=== PATIENT | female | born 1960 | race Caucasian/White ===

== ENCOUNTER 2016-08-31 06:14 | Inpatient (IN) | payer BC ==
[2016-08-20 14:19] VITALS: BMI 24.0
--- NOTE | 2016-08-20 14:55 | PAT Medication Instructions ---
Service Date Aug 20, 2016. Current Home Medication List Aspirin (Aspirin Ec), 81 MG PO QAM Celecoxib (CeleBREX), 200 MG PO BID PRN for Pain Cholecalciferol (Vitamin D), 2,000 UNITS PO QAM Estrog Conj/Medryoxyprog Acet (Prempro 0.3MG/1.5MG), 1 TAB PO HS Fexofenadine Hcl (Ivanna Allergy), 1 TAB PO QAM Fish Oil ([place]-3), 1,200 MG PO BID Levothyroxine Sodium (Synthroid), 50 MCG PO QAM Lorazepam (Ativan), 0.5 MG PO HS Nutritional Supplements (Juice Plus Fibre), 2 DOSE PO BID Sertraline (Zoloft), 50 MG PO QAM Medication Instructions For Your Scheduled Surgery - Hold the following medications as of 08/21/16: Fish Oil ([place]-3), 1,200 MG PO BID - Hold the following medications the morning of surgery: Cholecalciferol (Vitamin D), 2,000 UNITS PO QAM Celecoxib (CeleBREX), 200 MG PO BID PRN for Pain Fexofenadine Hcl (Ivanna Allergy), 1 TAB PO QAM Nutritional Supplements (Juice Plus Fibre), 2 DOSE PO BID - Take the following medications the morning of surgery with a sip of water OTHERWISE NOTHING TO EAT OR DRINK AFTER MIDNIGHT: Aspirin (Aspirin Ec), 81 MG PO QAM Sertraline (Zoloft), 50 MG PO QAM Levothyroxine Sodium (Synthroid), 50 MCG PO QAM - Take the following medications as scheduled the night before surgery: Estrog Conj/Medryoxyprog Acet (Prempro 0.3MG/1.5MG), 1 TAB PO HS Celecoxib (CeleBREX), 200 MG PO BID PRN for Pain Lorazepam (Ativan), 0.5 MG PO HS Nutritional Supplements (Juice Plus Fibre), 2 DOSE PO BID If you have any questions please call us at [phone] or [phone] or [phone]
[2016-08-20 15:27] LABS: URINE APPEARANCE CLEAR (CLEAR); URINE BILIRUBIN NEG (NEG); URINE COLOR YELLOW; URINE NITRITE NEG (NEG); UROBILINOGEN NEG (NEG); ZZUR CULT IF INDIC CLEAN CATCH NO
[2016-08-20 15:30] LABS: MANUAL MICROSCOPIC REQUIRED? NO; REVIEW REQ? NO
[2016-08-20 15:35] LABS: PARTIAL THROMBOPLASTIN RATIO 0.9; PROTHROMBIN TIME (PATIENT) 10.4 SECONDS (9.0-12.0)
--- NOTE | 2016-08-20 15:35 | DIAGNOSTIC IMAGING REPORT ---
CHEST 2 VIEWS ROUTINE CLINICAL HISTORY: Preoperative evaluation. COMPARISON STUDY: No previous studies for comparison. FINDINGS: Lung volumes are normal. Lungs are clear. There is no pneumothorax or pleural effusion. Pulmonary vascularity is normal. Cardiac size is normal. Mediastinal contours are normal. There are cholecystectomy clips. IMPRESSION: No acute cardiopulmonary findings. Electronically signed by: Maciel Butler M.D. 08/20/2016 3:34 PM Dictated Date/Time: 08/20/2016 3:34 PM
[2016-08-20 15:37] LABS: BASO % 0.4 %; BASO ABS # 0.03 K/uL (0-0.2); COMPLETE YES; EOS % 1.9 %; IG% 0.1 %; LYMPH % 29.5 %; LYMPH ABS # 2.05 K/uL (1.2-3.4); MEAN CELL VOLUME 96.9 fL (80-100); MEAN CORPUSCULAR HEMOGLOBIN 32.9 pg (25-34); MEAN CORPUSCULAR HGB CONC 33.9 g/dl (32-36); MEAN PLATELET VOLUME 9.6 fL (7.4-10.4); MONO % 6.5 %; NEUT % 61.6 %; PLATELET COUNT 254 K/uL (130-400); RED BLOOD COUNT 4.23 M/uL (4.2-5.4); WHITE BLOOD COUNT 6.95 K/uL (4.8-10.8)
[2016-08-20 15:47] LABS: BUN/CREATININE RATIO 16.1 (10-20); CALCIUM 8.8 mg/dl (8.5-10.1); CREATININE 0.96 mg/dl (0.60-1.20)
--- NOTE | 2016-08-30 09:18 | HISTORY & PHYSICAL EXAMINATION ---
DATE OF ADMISSION: 08/31/2016 CHIEF COMPLAINT: Left hip pain. HISTORY OF PRESENT ILLNESS: Sofy is a 55-year-old female with a 5-month history of pain in her left hip. She rates her pain a 10/10. She has pain with her daily activities. She has limited standing and walking tolerance. Pain is worse with weightbearing. The patient has had physical therapy and Celebrex without relief. She has failed conservative treatment and is scheduled for left hip replacement. PAST MEDICAL HISTORY: Thyroid disease, anxiety. She denies heart disease, diabetes or DVT. PAST SURGICAL HISTORY: Hernia repair, carpal tunnel bilateral, tubal ligation, ablation and cholecystectomy. SOCIAL HISTORY: The patient drinks wine. She denies tobacco use. She lives in a 2-story home. She is and works as a hospice nurse. FAMILY HISTORY: Negative for DVT. MEDICATIONS: Aspirin 81 mg daily, Ivanna 180 mg daily, Celebrex 200 mg daily, vitamin D 2000 mg, sertraline 50 mg, Ativan 0.5 mg at bedtime, omega-3 600 mg daily, Juice plus, Synthroid 50 mcg and Prempro 0.3 mg. ALLERGIES: TRAMADOL CAUSES HIVES, REGLAN CAUSES ANAPHYLAXIS. REVIEW OF SYSTEMS: See HPI. Ten other systems reviewed, all negative. PHYSICAL EXAMINATION: VITAL SIGNS: Height 5 foot 7, weight 155 pounds, BMI 24. GENERAL: This is a well-developed, well-nourished female who is alert and oriented x3. Mood and affect are appropriate. HEENT: Normocephalic, atraumatic. Mucous membranes are moist and intact. NECK: Supple without lymphadenopathy. HEART: Regular rate and rhythm without murmurs, rubs or gallops. LUNGS: Clear to auscultation without wheezes or rhonchi. ABDOMEN: Soft and nontender. Bowel sounds are equal and active. EXTREMITIES: No ecchymosis, redness or warmth. Thigh and calf are soft and nontender. Log roll of the hip reproduces pain in the groin. Range of motion is decreased. She is neurovascularly intact with +5/5 strength. X-RAY EXAMINATION: AP and lateral views show joint space narrowing and osteophyte formation. IMPRESSION: Degenerative joint disease, left hip. PLAN: The patient will be admitted for a left total hip arthroplasty, direct anterior approach. We will plan on aspirin for DVT prophylaxis.
[2016-08-31] VITALS (9 sets, daily range): BP systolic 96–135; BP diastolic 57–77; PULSE 59–71; TEMP 36.3–36.8; O2SAT 96–100; Ht 170.2 cm; Wt 70.9 kg
[~2016-08-31] VITALS: Ht 170.2 cm; Wt 70.9 kg
[~2016-08-31 06:14] MED LIST: ACETAMINOPHEN 500 MG TAB PO SCH; ASPI81TA28 PO; CEFAZOLIN 2000 MG/60 ML D5W 60 ML IV SCH; CHOL20009 PO; CLB/200 PO; CONJ0.3T3 PO; CeleBREX 200 MG CAP PO SCH; DEXAMETHASONE 4 MG TAB PO SCH; FAMOTIDINE 20 MG TAB PO SCH; FEXO1TAB49 PO; GABAPENTIN 300 MG CAP PO SCH; LACTATED RINGER'S 1000ML 1,000 ML IV SCH; LACTATED RINGER'S 1000ML 500 ML IV SCH; LACTATED RINGER'S 1000ML IV SCH; LEVO50TA PO; LORA-741 PO; METOCLOPRAMIDE HCL 10 MG TAB PO SCH; NUTR-218 PO; OMEG10007 PO; OXYCODONE HCL 10 MG TABCR (OXYCONTIN) PO SCH; POLYMYXIN B SULFATE 100,000 UNITS in NSS 100ML IR SCH; ROPIVACAINE 5MG/ML 30 ML 150 MG, BUPIVACAINE/EPINEPHR 0.5% MPF 30 ML, KETOROLAC TROMETH... INFIL SCH; SERT50TA PO; VANCOMYCIN INJ 400 MG in NSS 100ML IR SCH
[2016-08-31] MEDS ORDERED: BUPIVACAINE 0.5 % 5 MG/1 ML PF 10ML VIAL ONE (07:45)
[2016-08-31] MEDS ORDERED: MIDAZOLAM HCL 1 MG/ML 2ML VIAL ONE (08:03)
--- NOTE | 2016-08-31 08:40 | History & Physical Bridge Note ---
H&P Re-Evaluation Bridge Note: I have examined the patient, reviewed the History & Physical and in the interval since the performance of the History & Physical I have noted the following changes of clinical significance: No changes noted
[2016-08-31] MEDS ORDERED: BACITRACIN 50000 UNIT VIAL ONE (09:11)
[2016-08-31] MEDS ORDERED: ORTHO JOINT ANESTHETIC ONE (09:11)
[2016-08-31] MEDS ORDERED: POVIDONE-IODINE OP SOLN 30 ML BTL ONE (09:11)
[2016-08-31] MEDS ORDERED: PROPOFOL IV EMULSION 10 MG/ML 20 ML VIAL IV ONE (10:22)
[2016-08-31] MEDS ORDERED: EpHEDrine SULFATE INJ 50 MG/ML AMP ONE (10:22)
--- NOTE | 2016-08-31 10:55 | [facility] Post Operative Brief Note ---
Immediate Operative Summary Operative Date Aug 31, 2016. Pre-Operative Diagnosis Degenerative joint disease, left hip Post-Operative Diagnosis Degenerative joint disease, left hip Procedure(s) Performed Left total hip arthroplasty, anterior approach Surgeon Dr Dick Mistry Damage Assessor Surgeon(s) Robyn Rao PA-C Estimated Blood Loss 100 mL Findings djd synovium angry Specimens A: Left femoral head Complication(s) None Disposition Recovery Room / PACU
[2016-08-31] MEDS ORDERED: SOD PHOSPHATE/SOD BIPHOSPHATE ENEMA 132 ML BTL PR PRN (11:00)
[2016-08-31] MEDS ORDERED: MoRPHine SULFATE 2 MG/ML CARP IV PRN (11:00)
[2016-08-31] MEDS ORDERED: DiphenhydrAMINE HCL 50 MG/ML VIAL IV PRN (11:00)
[2016-08-31] MEDS ORDERED: ALUMINUM/MAGNESIUM/SIMETH (MAALOX MAX) 30 ML UDC PO PRN (11:00)
[2016-08-31] MEDS ORDERED: FENTANYL CITRATE INJ 50 MCG/1 ML 2 ML VIAL IV PRN (11:00)
[2016-08-31] MEDS ORDERED: ZOLPIDEM TARTRATE 5 MG TAB PO PRN (11:00)
[2016-08-31] MEDS ORDERED: MAGNESIUM HYDROXIDE SUSP 30 ML UDC PO PRN (11:00)
[2016-08-31] MEDS ORDERED: ONDANSETRON INJ 2 MG/ML 2 ML VIAL IV PRN ×2 (11:00)
[2016-08-31] MEDS ORDERED: HYDROmorphone INJ 1 MG/ML SYR IV PRN (11:00)
[2016-08-31] MEDS ORDERED: EpHEDrine SULFATE INJ 50 MG/ML AMP IV PRN (11:00)
[2016-08-31] MEDS ORDERED: MEPERIDINE HCL 25 MG/ML CARP IV PRN (11:00)
[2016-08-31] MEDS ORDERED: BISACODYL 10 MG SUPP PR PRN (11:00)
[2016-08-31] MEDS ORDERED: LABETALOL HCL IV 5 MG/ML 20ML IV PRN (11:00)
[2016-08-31] MEDS ORDERED: ATROPINE SULFATE 0.1 MG/ML 5ML SYR IV PRN (11:00)
--- NOTE | 2016-08-31 11:05 | DIAGNOSTIC IMAGING REPORT ---
INTRAOPERATIVE RADIOGRAPH CLINICAL HISTORY: Left hip arthroplasty. Fluoroscopy time: 15 seconds. FINDINGS: A single spot fluoroscopic view of the left hip is presented. A bipolar left hip are plasty is in near-anatomic alignment. A single cortical lag screw transfixes the acetabular cup. Soft tissue edema and subcutaneous gas are likely on a postoperative basis. There is no evidence of fracture on this fluoroscopic view. IMPRESSION: Intraoperative image from a left hip arthroplasty procedure as above. Electronically signed by: Ford Issa M.D. 08/31/2016 11:03 AM Dictated Date/Time: 08/31/2016 11:02 AM
--- NOTE | 2016-08-31 12:04 | DIAGNOSTIC IMAGING REPORT ---
AP PELVIS, CROSSTABLE LATERAL LEFT HIP History: Left total hip arthroplasty. Degenerative arthritis. Postop. FINDINGS: The patient is status post a left total hip arthroplasty. The hardware is intact. No fracture or dislocation. Surgical drains are in place. IMPRESSION: Left total hip arthroplasty. No evidence for hardware complication. Electronically signed by: Cesar Merritt M.D. 08/31/2016 12:02 PM Dictated Date/Time: 08/31/2016 12:01 PM
[2016-08-31] MEDS: TRANEXAMIC ACID INJ 1,000 MG in SODIUM CHLORIDE 0.9% 100ML 100 ML IV SCH ×2 (13:01→13:02)
[2016-08-31] MEDS: D5W AND 1/2NSS + 20MEQ KCL 1,000 ML IV SCH ×2 (13:23→22:35)
[2016-08-31] MEDS: ACETAMINOPHEN 500 MG TAB PO SCH ×2 (14:10→22:35)
[2016-08-31] MEDS: KETOROLAC TROMETHAMINE 30 MG/ML VIAL IV. SCH ×2 (14:11→20:07)
[2016-08-31] MEDS: CONJUGATED ESTROGENS PO SCH ×2 (15:29→23:00)
[2016-08-31] MEDS: MEDROXYPROGESTERONE PO SCH ×2 (15:29→23:00)
--- NOTE | 2016-08-31 16:20 | OPERATIVE REPORT ---
DATE OF OPERATION: 08/31/2016 PREOPERATIVE DIAGNOSIS: Degenerative arthritis, left hip. POSTOPERATIVE DIAGNOSIS: Same. PROCEDURE: Left total hip replacement. SURGEON: Dr. Dick Mistry. CONVALESCENT SITTER: EVELIN Terry ANESTHESIA: Spinal. BLOOD LOSS: 100 mL. REPLACEMENT FLUIDS: 1500 mL crystalloid. DRAINS: Hemovac x1. CULTURES: None. COMPLICATIONS: None. COMPONENTS USED: Whaley \T\ Nephew Anthology hip system: Acetabulum size 50, femur size 3 standard offset, femoral head 0, and neck length 32 mm. NOTE: EVELIN Terry was present and assisted throughout due to the complicated nature of this case. She helped with preparation and set up. She first assisted throughout. She personally closed the fascial, subcutaneous and skin layers and applied the postoperative dressing. DESCRIPTION OF PROCEDURE: Following satisfactory spinal, the patient was supine. The left leg was placed in the traction device and the right leg was placed in the well leg deng. The left leg was prepared with ChloraPrep and draped sterilely. Following a surgical time-out, an anterior approach in the interval between the sartorius and tensor muscles was completed. Circumflex femoral vessels were identified and ligated. An anterior capsulotomy was performed and the hip showed very angry synovial lining and significant degenerative changes. The femoral neck and head were trimmed and the arthritic femoral head was removed. The acetabular self-retraining retractor was placed. Acetabular preparation was completed and reaming was completed with fluoroscopic guidance. A 50 shell was impacted into an anatomic position and secured with a dome screw. Local anesthetic was placed and after irrigation, the polyethylene liner was placed. Attention was turned to the femur. The femur was placed into position of external rotation, extension and adduction. Femoral canal was prepared up to the size 3. A trial reduction with a 0 neck length head using fluoroscopy showed good fit and fill of the canal and worship of leg lengths using anatomic landmarks on fluoroscopy. The hip was dislocated. Trial component was removed. Local anesthetic was placed and after irrigation, the final implant was placed. The hip was irrigated and reduced. Fluoroscopy confirmed the position. A Betadine soak was performed. Local anesthetic was placed. After 5 minutes, the Betadine was irrigated. The capsule was closed with 1 Vicryl interrupted. A drain was placed. The fascia was closed with a running suture of 1 Vicryl. The subcutaneous tissues with 2-0 Vicryl and the skin with a running subcuticular stitch of 3-0 V-Loc. Dermabond and a dry dressing were applied. The patient was returned to her bed in stable condition. I attest to the content of the Intraoperative Record and any orders documented therein. Any exceptio ns are noted below.
--- NOTE | 2016-08-31 16:25 | Anesthesiology Progress Note ---
Anesthesia Post Op Note Date & Time Aug 31, 2016 at 16:24 Vital Signs Pain Intensity: 0.0 Vital Signs Past 12 Hours Date Time Temp Pulse Resp B/P Pulse Ox O2 Delivery O2 Flow Rate FiO2 08/31/16 14:58 36.4 61 16 104/63 99 Nasal Cannula 2.0 08/31/16 14:03 36.5 69 19 103/66 100 Nasal Cannula 2.0 08/31/16 13:05 59 17 100/63 100 Nasal Cannula 2.0 08/31/16 12:30 36.3 64 19 107/57 100 Nasal Cannula 2.0 08/31/16 12:00 36.5 71 16 112/70 99 Nasal Cannula 2.0 08/31/16 12:00 99 Nasal Cannula 2.0 08/31/16 12:00 Nasal Cannula 2.0 08/31/16 11:45 36.9 16 108/60 100 Nasal Cannula 2 08/31/16 11:38 36.9 08/31/16 11:30 67 16 122/62 100 Nasal Cannula 2 08/31/16 11:20 79 16 108/69 100 Nasal Cannula 4 08/31/16 11:10 80 14 118/63 100 Nasal Cannula 4 08/31/16 11:07 36.7 80 116/67 100 Nasal Cannula 4 08/31/16 07:10 36.8 62 16 135/77 97 Room Air Notes Mental Status: alert / awake / arousable, participated in evaluation Pt Amnestic to Procedure: Yes Nausea / Vomiting: adequately controlled Pain: adequately controlled Airway Patency, RR, SpO2: stable & adequate BP & HR: stable & adequate Hydration State: stable & adequate Neuraxial Anesthesia: was administered, sensory block is resolving Anesthetic Complications: no major complications apparent
[2016-08-31] MEDS: CEFAZOLIN IV 2,000 MG in DEXTROSE 5% 50ML 50 ML IV SCH (18:07)
[2016-08-31] MEDS: OXYCODONE HCL IR 5 MG TAB (IMMEDIATE RELEASE) PO PRN (18:07)
[2016-08-31] MEDS ORDERED: SENNA 8.6 MG TAB PO SCH (21:00)
[2016-08-31] MEDS ORDERED: LORAZEPAM 0.5 MG TAB PO SCH (21:00)
[2016-08-31] MEDS: ASPIRIN 81 MG ECTAB PO SCH (21:16)
[2016-09-01] MEDS: KETOROLAC TROMETHAMINE 30 MG/ML VIAL IV. SCH ×2 (02:20→08:22)
[2016-09-01] MEDS: CEFAZOLIN IV 2,000 MG in DEXTROSE 5% 50ML 50 ML IV SCH (02:20)
[2016-09-01] MEDS: OXYCODONE HCL IR 5 MG TAB (IMMEDIATE RELEASE) PO PRN ×2 (02:21→11:27)
[2016-09-01 03:55] VITALS: BP 93/54; PULSE 65; TEMP 36.8; O2SAT 94
[2016-09-01] MEDS: ACETAMINOPHEN 500 MG TAB PO SCH (05:50)
[2016-09-01] MEDS ORDERED: LEVOTHYROXINE 50 MCG TAB PO SCH (06:00)
[2016-09-01 06:31] LABS: BASO % 0.1 %; BASO ABS # 0.01 K/uL (0-0.2); COMPLETE YES; EOS % 0.1 %; HEMATOCRIT 31.2 % (37-47); IG% 0.2 %; LYMPH % 10.6 %; LYMPH ABS # 1.31 K/uL (1.2-3.4); MEAN CORPUSCULAR HEMOGLOBIN 32.9 pg (25-34); MEAN CORPUSCULAR HGB CONC 34.3 g/dl (32-36); MEAN PLATELET VOLUME 9.4 fL (7.4-10.4); MONO % 6.9 %; NEUT % 82.1 %; PLATELET COUNT 189 K/uL (130-400); RED BLOOD COUNT 3.25 M/uL (4.2-5.4)
[2016-09-01 07:01] LABS: BUN/CREATININE RATIO 11.8 (10-20); CALCIUM 7.9 mg/dl (8.5-10.1); CREATININE 0.97 mg/dl (0.60-1.20); POTASSIUM 3.9 mmol/L (3.5-5.1)
[2016-09-01 07:26] VITALS: BP 108/67; PULSE 74; TEMP 36.7; O2SAT 98
[2016-09-01] MEDS: MEDROXYPROGESTERONE PO SCH (08:00)
[2016-09-01] MEDS: CONJUGATED ESTROGENS PO SCH (08:00)
--- NOTE | 2016-09-01 08:18 | Orthopedic Progress Note ---
Orthopedic Progress Note Date of Service Sep 01, 2016. Subjective Post OP Day: 1 Reports: feeling well, pain controlled w PO medications, Denies: calf pain, complaints, light headedness, nausea / vomiting Objective calves soft nontender, N/V intact, hip located, dressing C/D/I, A&O x3, toes mobile, hemovac drainage (110 LAST SHIFT ) Date Time Temp Pulse Resp B/P Pulse Ox O2 Delivery O2 Flow Rate FiO2 09/01/16 07:26 36.7 74 18 108/67 98 Room Air 09/01/16 03:55 36.8 65 16 93/54 94 Room Air 08/31/16 23:15 Room Air 08/31/16 23:03 36.6 63 16 96/57 96 Room Air 08/31/16 22:22 Room Air 08/31/16 19:33 36.5 64 17 101/64 96 Room Air 08/31/16 15:30 97 Room Air 08/31/16 14:58 36.4 61 16 104/63 99 Nasal Cannula 2.0 08/31/16 14:03 36.5 69 19 103/66 100 Nasal Cannula 2.0 08/31/16 13:05 59 17 100/63 100 Nasal Cannula 2.0 08/31/16 12:30 36.3 64 19 107/57 100 Nasal Cannula 2.0 08/31/16 12:00 36.5 71 16 112/70 99 Nasal Cannula 2.0 08/31/16 12:00 99 Nasal Cannula 2.0 08/31/16 12:00 Nasal Cannula 2.0 08/31/16 11:45 36.9 16 108/60 100 Nasal Cannula 2 08/31/16 11:38 36.9 08/31/16 11:30 67 16 122/62 100 Nasal Cannula 2 08/31/16 11:20 79 16 108/69 100 Nasal Cannula 4 08/31/16 11:10 80 14 118/63 100 Nasal Cannula 4 08/31/16 11:07 36.7 80 116/67 100 Nasal Cannula 4 Laboratory Results 24 Hours: Test 09/01/16 06:13 White Blood Count 12.40 K/uL Red Blood Count 3.25 M/uL Hemoglobin 10.7 g/dL Hematocrit 31.2 % Mean Corpuscular Volume 96.0 fL Mean Corpuscular Hemoglobin 32.9 pg Mean Corpuscular Hemoglobin Concent 34.3 g/dl Platelet Count 189 K/uL Mean Platelet Volume 9.4 fL Neutrophils (%) (Auto) 82.1 % Lymphocytes (%) (Auto) 10.6 % Monocytes (%) (Auto) 6.9 % Eosinophils (%) (Auto) 0.1 % Basophils (%) (Auto) 0.1 % Neutrophils # (Auto) 10.19 K/uL Lymphocytes # (Auto) 1.31 K/uL Monocytes # (Auto) 0.86 K/uL Eosinophils # (Auto) 0.01 K/uL Basophils # (Auto) 0.01 K/uL Assessment & Plan Assessment: POD 1 DEIDRA Plan: HOME TODAY NO NEEDS Inhouse Planning Pain Management: Celebrex, PO Tylenol, Oxy IR DVT Prophylaxis: TEDs, SCDs, ASA Discharge Planning Discharge Planning: home Pain Management: Celebrex, PO Tylenol, Oxy IR DVT Prophylaxis: TEDs, ASA Therapy: Physical Therapy
[2016-09-01] MEDS ORDERED: RXC5 PO (08:34)
[2016-09-01] MEDS ORDERED: CLB/200 PO (08:34)
[2016-09-01] MEDS ORDERED: ASPI81TA28 PO (08:34)
[2016-09-01] MEDS ORDERED: ONDA8TAB6 PO (08:34)
[2016-09-01] MEDS ORDERED: ACET-1138 PO (08:34)
[2016-09-01] MEDS ORDERED: SNK PO (08:34)
--- NOTE | 2016-09-01 08:41 | Discharge Instructions ---
Discharge Instructions Admission Reason for Admission: Left Hip Degenerative Arthritis Discharge Discharge Diagnosis / Problem: Left Hip Djd Discharge Goals Goal(s): Decrease discomfort, Improve function Activity Recommendations Activity Limitations: per Instructions/Follow-up section Weightbearing Status: Left weightbearing (as tolerated) . Instructions / Follow-Up Instructions / Follow-Up ACTIVITY RECOMMENDATIONS: SELF CARE INSTRUCTIONS AFTER TOTAL HIP REPLACEMENT : Direct Anterior Approach Until the incision and soft tissues around your hip have healed, there is a possibility that the hip prosthesis could dislocate. A. Hip flexion ( Up & Down out of chair or steps ) may be difficult. This is normal. B. Numbness in front of the thigh is also normal for a few weeks. C. Use hand rails when walking on stairs. D. Wear low heeled shoes with non-slip soles. E. Be sure that your floors are free of things that could trip you - throw rugs , electrical cords, small objects. Avoid wet and waxed floors, especially with crutches and canes. F. Try to walk several times a day with rest periods between. G. Continue with all the exercises taught to you in the hospital. Again, make walking a part of your daily routine. SPECIAL CARE INSTRUCTIONS: VERY IMPORTANT TO READ AND REVIEW A. You may still be at risk for phlebitis and blood clots. 1. Wear surgical stockings (NILSON hose) for 2 weeks after surgery to improve circulation and reduce swelling. 2. Take Aspirin 81mg twice daily for 4 weeks or as directed by your doctor. This is your blood thinner. 3. High risk patients may be prescribed a stronger blood thinner if necessary. 4. If you are on Coumadin normally, your family doctor/human services program specialist should monitor your blood work. Expect a phone call the day of or the day after bloodwork is drawn to adjust your dosage. B. You must take antibiotics before having dental work, bladder, bowel and other surgery. Your doctor will provide you with a permanent card to carry describing precautions. C. Call [facility] if you have a fever, redness or swelling around the incision, cloudy drainage from incision, or sudden increase in pain in your hip, not relieved by your regular pain medication. D. Please call the office at if you have any concerns or questions about your operation or recovery. * YOU MAY SHOWER, NO TUB BATHS UNTIL CLEARED BY YOUR DOCTOR. - Keep an extra close eye on the top portion of your incision. Be sure to keep clean & dry. * WEAR NILSON HOSE 20 HOURS PER DAY FOR 2 WEEKS. * YOU MAY PROGRESS FROM A WALKER, TO A CANE, TO INDEPENDENT AT YOUR OWN PACE. * MOST PATIENTS WILL HAVE HOME NURSING FOR THERAPY. IF YOU DECIDE TO DO OUTPATIENT PHYSICAL THERAPY, PLEASE SCHEDULE THIS 3 TIMES PER WEEK. * DERMABOND Prineo- This is a mesh tape dressing that is covered with glue. It should remain in place until the incision is properly healed, usually 10-14 days. This dressing is designed to naturally slough off. You may trim the excess mesh tape as it peels off. Incision may be briefly wet in a shower. Dry immediately by blotting with a clean, dry towel. Do not bath or swim until instructed by your doctor. Do not scratch, rub, or pick at the dressing. Do not apply any topical ointments or lotions until dressing is completely removed and/or instructed by your doctor. There may be a small piece of suture material at one end of your incision. Do not pull or trim this. If it is bothersome or catching on clothing, you may cover it with a band-aid. FOLLOW UP VISIT: If appointment is not already scheduled: Please call [facility] to make a follow-up appointment for 2 weeks after your surgery at . Current Hospital Diet Patient's current hospital diet: Regular Diet Discharge Diet Recommended Diet: Regular Diet Procedures Procedures Performed: Left total hip arthroplasty, anterior approach Pending Studies Studies pending at discharge: no Medical Emergencies . Who to Call and When: Medical Emergencies: If at any time you feel your situation is an emergency, please call 911 immediately. . Non-Emergent Contact Non-Emergency issues call your: Surgeon Call Non-Emergent contact if: temperature is above 101.5, your pain is not controlled, your pain is worsening, wound has increased drainage, wound has increased redness . "Provider Documentation" section prepared by Isaías Wei. VTE Core Measure Inpt VTE Proph given/why not?: Other Anticoagulation, T.E.D. Stockings, SCD's [place] Drug Monitoring Program Search Results: patient reviewed within database, no issues identified
[2016-09-01] MEDS: D5W AND 1/2NSS + 20MEQ KCL 1,000 ML IV SCH (08:58)
[2016-09-01] MEDS ORDERED: PANTOprazole SOD 40 MG TAB PO SCH (09:00)
[2016-09-01] MEDS ORDERED: SERTRALINE HCL 50 MG TAB PO SCH (09:00)
[2016-09-01] MEDS ORDERED: MULTIVITAMIN TAB PO SCH (09:00)
[2016-09-01] MEDS ORDERED: CHOLECALCIFEROL 1000 INTER.UNIT TAB PO SCH (09:00)
[2016-09-01] MEDS: ASPIRIN 81 MG ECTAB PO SCH (09:00)
[2016-09-01 11:15] VITALS: BP 108/67; PULSE 74; TEMP 36.7; O2SAT 98
[2016-09-02] MEDS ORDERED: CeleBREX 200 MG CAP PO SCH (21:00)
--- NOTE | 2016-09-03 14:32 | DISCHARGE SUMMARY ---
DISCHARGE DIAGNOSIS: Degenerative joint disease, left hip. SECONDARY DIAGNOSIS: None. CONSULTS: None. COMPLICATIONS: None. PROCEDURE: The patient underwent a direct anterior left total hip arthroplasty with Dr. Mistry on 08/31/2016. BRIEF HISTORY: Please see previously dictated history and physical. HOSPITAL SUMMARY: The patient was admitted on the above day for the above procedure. Procedure went without complication. Postop day 1, the patient was feeling well without complaints. She denied chest pain or shortness of breath. Vital signs were stable. She was afebrile. Dressing was clean, dry and intact. She was neurovascularly intact. Calves were soft and nontender. Hip was located. Hemovac drained 110 mL. Hemoglobin was 10.7. The patient began physical therapy per protocol. She was discharged to home later that day in stable condition. For further review please see the chart. Lab, x-ray data and discharge instructions as per chart.
== END 2016-09-01 11:35 | disposition home or self-care (01) | DRG 470 ==
LOC: ENRESERVTM → ENRESERVDT → C.ACU 06:14 → C.3E 10:59
PROVIDERS: ADMIT Orthopaedic Surgery; ATTEND Orthopaedic Surgery
PROC: 0SRB01Z Replacement of Left Hip Joint with Metal Synthetic Substitute, Open Approach (ICD-10-PCS; principal; 2016-08-31 08:55)
DX: M16.12 Unilateral primary osteoarthritis, left hip (principal)

== ENCOUNTER 2025-06-24 05:55 | Inpatient (IN) ==
--- NOTE | 2025-06-01 11:48 | PAT Medication Instructions ---
Medication Instructions Date of Service June 01, 2025 Home Medications Calcium 200 mg PO QAM escitalopram oxalate 10 mg tablet (Lexapro) 10 mg PO QAM fexofenadine 180 mg tablet 180 mg PO QAM levothyroxine 50 mcg tablet (Synthroid) 50 mcg PO QAM lorazepam 0.5 mg tablet (Ativan) 0.5 mg PO HS magnesium 200 mg tablet 200 mg PO HS meloxicam 15 mg tablet 15 mg PO QAM omeprazole 20 mg capsule,delayed release 20 mg PO QAM vitamin A-vitamin C-vit E-min tablet 1 tab PO QAM ASK your surgeon for instructions meloxicam 15 mg tablet 15 mg PO QAM STOP taking 2 weeks before surgery (or as soon as possible if surgery is within 2 weeks) vitamin A-vitamin C-vit E-min tablet 1 tab PO QAM DO NOT take the morning of surgery Calcium 200 mg PO QAM fexofenadine 180 mg tablet 180 mg PO QAM Take morning of surgery With a small sip of water, OTHERWISE NOTHING TO EAT OR DRINK AFTER MIDNIGHT: escitalopram oxalate 10 mg tablet (Lexapro) 10 mg PO QAM levothyroxine 50 mcg tablet (Synthroid) 50 mcg PO QAM omeprazole 20 mg capsule,delayed release 20 mg PO QAM Take evening before surgery lorazepam 0.5 mg tablet (Ativan) 0.5 mg PO HS magnesium 200 mg tablet 200 mg PO HS Other Notes If you have any questions please call us at [phone] or [phone] or [phone] or [phone]
--- NOTE | 2025-06-08 11:55 | Anesthesiology Consultation ---
Date of Service June 08, 2025 Assessment & Plan (1) Encounter for pre-operative examination: - Infectious disease screening: Per assessment on 06/08/25- No known recent infectious disease contacts or current infectious disease symptoms. - Acceptable risk for surgery pending surgeon-ordered PCP preop evaluation (Dr. Livia Brenner/[facility] Luciano, appt 06/14). Chart Review Chart Review: Patient seen in Pre Admission Testing Teaching & Discussion Pre-Anesthesia Teaching/Discussion Notes: Instructed NPO after midnight before surgery,except medications with 15 cc of water. Medication instructions provided according to the PAT guidelines. History Surgery Operation Date: 06/24/25 11:05 Proposed Procedures p L5-S1 Decompession and Fusion - Manolo Corey, Height/Weight Height: 5 ft 6 in Weight: 60.1 kg Allergies Allergy/AdvReac Type Severity Reaction Status Date / Time metoclopramide Allergy Severe Shortness Verified 06/04/25 12:37 of breath latex Allergy Intermediate Rash Verified 06/04/25 12:37 tramadol Allergy Intermediate Hives, Verified 06/08/25 12:20 Shortness of breath Medications Home Medications Medication Instructions Recorded Confirmed Last Taken Calcium 200 mg PO QAM 06/01/25 06/01/25 Unknown escitalopram oxalate 10 mg tablet 10 mg PO QAM 06/01/25 06/01/25 Unknown (Lexapro) fexofenadine 180 mg tablet 180 mg PO QAM 06/01/25 06/01/25 Unknown levothyroxine 50 mcg tablet 50 mcg PO QAM 06/01/25 06/01/25 Unknown (Synthroid) lorazepam 0.5 mg tablet (Ativan) 0.5 mg PO HS 06/01/25 06/01/25 Unknown magnesium 200 mg tablet 200 mg PO HS 06/01/25 06/01/25 Unknown meloxicam 15 mg tablet 15 mg PO QAM 06/01/25 06/01/25 Unknown omeprazole 20 mg capsule,delayed 20 mg PO QAM 06/01/25 06/01/25 Unknown release vitamin A-vitamin C-vit E-min 1 tab PO QAM 06/01/25 06/01/25 Unknown tablet Hair,Skin and Nails 1 tab PO DAILY 06/08/25 06/08/25 Unknown cholecalciferol (vitamin D3) 125 125 mcg PO DAILY 06/08/25 06/08/25 Unknown mcg (5,000 unit) tablet (Vitamin D3) Past Medical History Medical History Acid reflux Anxiety Chronic back pain Hypothyroidism Exercise / Class Metabolic Activity III < 4 Walking/Shop/Light housework (one FS: No CP, + SOB in setting of worsening back issues) Past Family History Family History Other No family history of adverse response to anesthesia Past Surgical History Surgical History History of bilateral carpal tunnel release History of bilateral tubal ligation x2 (first one "didn't work" per patient) History of cholecystectomy History of dilatation and curettage History of endometrial ablation History of hernia surgery Age 3 History of tonsillectomy and adenoidectomy History of tooth extraction History of total hysterectomy with bilateral salpingo-oophorectomy (BSO) History of total left hip replacement History of total right hip replacement History of wisdom tooth extraction Hx of LASIK Past Anesthesia History No Hx of Anesthesia Complications and No Family Hx of Anesthesia Complications History of PONV No Hx of PONV and No Hx of Motion Sickness Social History Smoking Status: Never smoker Do You Dip or Chew Tobacco: No Hx Alcohol Use: No Hx Substance Use: No substance use type: does not use Review of Systems Patient denies chest pain, fever, chills, cough, wheezing. Physical Exam Vital Signs BP 128/79 P 62 TEMP 98.1 SP02 96%RA RESP 16 Physical Full cervical extension range of motion. Full TMJ range of motion. TMD 3 finger breaths Mallampati Score II Dentition: missing molar, + cap Lungs: clear throughout to auscultation Cardiac: regular rate and rhythm, no murmurs noted Spine: normal Carotid arteries: negative bruit Extremities: no LE edema Lab Results Anesthesia Preop Results Results Anesthesia Widget: WBC 4.99 K/ul (4.8-10.8) 06/08/25 Hgb 12.7 g/dL (12.0-16.0) 06/08/25 Hct 37.3 % (37.0-47.0) 06/08/25 Plt 235 K/uL (130-400) 06/08/25 Na 133 mmol/L (136-145) L 06/08/25 K 4.3 mmol/L (3.5-5.1) 06/08/25 Cl 98 mmol/L (98-107) 06/08/25 CO2 31 mmol/L (21-32) 06/08/25 BUN 23 mg/dl (6-23) 06/08/25 Creat 0.94 mg/dl (0.6-1.2) 06/08/25 Glucose Level 84 mg/dl (70-99(Fasting)) 06/08/25 PT 10.9 Seconds (9.0-12.0) 06/08/25 PTT 25 Seconds (21-31) 06/08/25 INR 1.0 (0.9-1.1) 06/08/25 Urine Color Yellow 06/08/25 Urine Appearance Clear (Clear) 06/08/25 Urine pH 7.0 (4.5-7.5) 06/08/25 Urine Specific [place] 1.009 (1.000-1.030) 06/08/25 Urine Protein Negative (Negative) 06/08/25 Urine Glucose (UA) Negative (Negative) 06/08/25 Urine Ketones Negative (Negative) 06/08/25 Urine Blood Negative (Negative) 06/08/25 Urine Nitrite Negative (Negative) 06/08/25 Urine Bilirubin Negative (Negative) 06/08/25 Urine Urobilinogen Negative (Negative) 06/08/25 Urine Leukocyte Esterase Negative (Negative) 06/08/25 Blood Type O Positive 06/08/25 Antibody Screen NEGATIVE 06/08/25 Testing Electrocardiogram Date: 06/08/25 NSR at 60bpm. "Normal ECG" Chest X-Ray Date: 06/08/25 FINDINGS: Heart size and pulmonary vasculature are normal. No consolidation or pleural effusion. IMPRESSION: No acute findings.
[2025-06-24] MEDS: LR 60ML/HR IV SCH (06:36)
[2025-06-24] MEDS: LR 15ML/HR IV SCH (06:36)
[2025-06-24] MEDS: ACETAMINOPHEN 500 MG TAB PO SCH (06:40)
[2025-06-24] MEDS: CeleBREX 200 MG CAP PO SCH (06:41)
[2025-06-24] MEDS: GABAPENTIN 300 MG CAP PO SCH (06:41)
[2025-06-24] MEDS ORDERED: ONDANSETRON INJ 2 MG/ML 2 ML VIAL ONE (07:01)
[2025-06-24] MEDS ORDERED: LIDOCAINE 2% 2 ML VIAL/AMP(20MG/ML) INFIL ONE (07:01)
[2025-06-24] MEDS ORDERED: DEXAMETHASONE SOD INJ 4 MG/ML VIAL ONE (07:01)
[2025-06-24] MEDS ORDERED: PROPOFOL IV EMULSION 10 MG/ML 20 ML VIAL IV ONE (07:01)
[2025-06-24] MEDS ORDERED: LARYING-O-JET KIT (LTA) ONE (07:02)
[2025-06-24] MEDS ORDERED: MIDAZOLAM HCL 1 MG/ML 2ML VIAL ONE (07:02)
[2025-06-24] MEDS ORDERED: ROCURONIUM BROMIDE 10 MG/ML 5 ML VIAL IV ONE (07:02)
[2025-06-24] MEDS ORDERED: DexMEDEtomidine HCL IV 100 MCG/ML VIAL IV ONE (07:08)
--- NOTE | 2025-06-24 07:42 | History & Physical Bridge Note ---
Date of Service June 24, 2025 History & Physical Bridge Note I have examined the patient, reviewed the History & Physical and in the interval since the performance of the History & Physical I have noted the following changes of clinical significance: no changes noted
[2025-06-24] MEDS ORDERED: ONDANSETRON INJ 2 MG/ML 2 ML VIAL IV PRN ×2 (07:43→11:03)
[2025-06-24] MEDS ORDERED: ATROPINE SULFATE 0.1 MG/ML 10ML SYR IV PRN (07:43)
--- NOTE | 2025-06-24 07:43 | History & Physical Report ---
Date of Service June 24, 2025 Assessment & Plan (1) Lumbosacral spondylosis with radiculopathy: Plan: L5-S1 decompression and fusion History of Present Illness Chief Complaint: Back and leg pain Primary Care Provider: Livia Brenner This is a 64-year-old female who presents with chronic persistent back and leg pain and failing course of nonoperative care is here for surgical invention. Allergies Allergy/AdvReac Type Severity Reaction Status Date / Time metoclopramide Allergy Severe Shortness Verified 06/24/25 05:56 of breath latex Allergy Intermediate Rash Verified 06/24/25 05:56 tramadol Allergy Intermediate Hives, Verified 06/24/25 05:56 Shortness of breath Home Medications Medication Instructions Recorded Confirmed Type Calcium 200 mg PO QAM 06/01/25 06/24/25 History escitalopram oxalate 10 mg tablet 10 mg PO QAM 06/01/25 06/24/25 History (Lexapro) fexofenadine 180 mg tablet 180 mg PO QAM 06/01/25 06/24/25 History levothyroxine 50 mcg tablet 50 mcg PO QAM 06/01/25 06/24/25 History (Synthroid) lorazepam 0.5 mg tablet (Ativan) 0.5 mg PO HS 06/01/25 06/24/25 History magnesium 200 mg tablet 200 mg PO HS 06/01/25 06/24/25 History meloxicam 15 mg tablet 15 mg PO QAM 06/01/25 06/24/25 History omeprazole 20 mg capsule,delayed 20 mg PO QAM 06/01/25 06/24/25 History release Hair,Skin and Nails 1 tab PO DAILY 06/08/25 06/24/25 History cholecalciferol (vitamin D3) 125 125 mcg PO DAILY 06/08/25 06/24/25 History mcg (5,000 unit) tablet (Vitamin D3) acetaminophen 325 mg capsule 650 mg PO TID PRN Pain 06/24/25 06/24/25 History Past Med/Surg History Problem List (Updated 06/24/25 @ 07:42 by Manolo Corey DO) Lumbosacral spondylosis with radiculopathy Encounter for pre-operative examination Medical History Acid reflux Anxiety Chronic back pain Hypothyroidism Surgical History History of bilateral carpal tunnel release History of bilateral tubal ligation x2 (first one "didn't work" per patient) History of cholecystectomy History of dilatation and curettage History of endometrial ablation History of hernia surgery Age 3 History of tonsillectomy and adenoidectomy History of tooth extraction History of total hysterectomy with bilateral salpingo-oophorectomy (BSO) History of total left hip replacement History of total right hip replacement History of wisdom tooth extraction Hx of LASIK Family History Other No family history of adverse response to anesthesia Social History Smoking Status: Never smoker Second Hand Exposure: No; Do You Dip or Chew Tobacco: No; Tobacco Cessation Education Requested by Patient: No Hx Alcohol Use: No Hx Substance Use: No Preferred Language: [place] Communication Ability: Effective Biblical Studies Professor Required: No Beliefs That Will Affect Care: None Current Living Situation: Spouse Other Information That Helps Us Care for You: No Feels Safe at Home: Yes Safety Concerns: Feels Safe At This Time Assistive Devices: None Physical Exam Physical Exam: Patient is alert and oriented heart regular rhythm lungs clear Results & Data Results & Data Vital Signs (Past 12 Hours) Vital Signs Temp Pulse Resp BP Pulse Ox O2 Del Method 06/24/25 06:09 Room Air 06/24/25 06:08 36.5 C 74 18 130/76 97 Room Air
[2025-06-24] MEDS ORDERED: ePHEDrine sulfate 50 MG/5 ML SYR ONE (08:11)
[2025-06-24] MEDS ORDERED: PHENYLEPHRINE 100MCG/ML 5ML SYR ONE (08:11)
[2025-06-24] MEDS: BUPIVACAINE/EPINEPHRINE 0.25% 1:200,000 30 ML VIAL ONE (08:14)
[2025-06-24] MEDS ORDERED: SUGAMMADEX SODIUM 200 MG/2 ML VIAL IV ONE (08:16)
[2025-06-24] MEDS ORDERED: PHENYLEPHRINE HCL 10 MG/ML VIAL ONE (08:31)
[2025-06-24] MEDS: FLOSEAL HEMOSTATIC MATRIX 10ML TOP ONE (09:20)
[2025-06-24] MEDS: ceFAZolin 330 MG/ML 1 GM VIAL ONE (09:20)
--- NOTE | 2025-06-24 09:28 | Operative Report ---
Post Operative Report Pre & Post Diagnosis Operation Date: 06/24/25 07:45 Pre-Op Diagnosis: Spinal Stenosis of Lumbar Region with Radiculopathy Post-Op Diagnosis: Spinal Stenosis of Lumbar Region with Radiculopathy I identified the patient and participated in the time-out.: Yes Procedure Operation Date: 06/24/25 07:45 Actual Procedures #1 lumbar decompression bilaterally facetectomies and foraminotomies L5-S1. 2 posterior spinal fusion L5-S1. #3 placement of posterior instrumentation L5-S1. #4 interbody fusion L5-S1. #5 placement of Spira 10 x 26 mm at L5-S1. #6 placement of Koros combined with Proteus bone graft to posterior lateral gutters and os design interbody space. #7 application of versa wrap of the exposed dura. Surgeon Manolo Corey, Hydraulic Governor Assembler Kaela Pantoja Estimated Blood Loss 50 Findings Consistent with Post-Op Diagnosis Specimens None Indications This is a 64-year-old female who presents by manage diagnosis Extensive course of nonoperative care is here for surgical invention. Description of Procedure Patient was met with identified informed consent obtained. Patient was then taken to the operative suite underwent intubation placed in a prone position on the [facility] top [place] frame. All bony prominences well-padded eyes inspected to ensure no external pressure placed upon. This point the lumbar spine was prepped and draped in normal sterile fashion. Sharp dissection with assistance of Bovie cautery performed down to and exposing the lamina transverse processes of L5 and the sacral ala bilaterally. From a [place] 5 fashion complete laminectomy of L5 was performed including bilateral medial facetectomies and foraminotomies addressing severe neural compression. Pedicle screws were placed in L5-S1 bilaterally with assistance of fluoroscopy by way of a transforaminal approach and left discectomy at L5-S1 was performed endplates corrected to subcortical bleeding bone and a 10 x 26 mm Spira cage filled with os design bone graft tapped in position. Proper size rods were then placed locked into position bilaterally. The transverse processes of L5 and sacral ala burred to subcortical bleeding bone. Koros combined with Proteus bone graft placement posterior lateral gutters. Versa wrap placed over the exposed dura. 15 round GEOVANY drain inserted. The incision was then closed with 1 Vicryl and fascia 2-0 Vicryl subcutaneously and 4 Monocryl for final skin closure. Steri- Strips sterile dressing placed. Patient waken taken to PACU stable condition. Please note Kaela Pantoja was present at the entire procedure by the patient positioning complex course of the surgery and final skin closure. I attest to the content of the Intraoperative Record and any orders documented therein. Any exceptions are noted below.
[2025-06-24] MEDS: HYDROmorphone INJ 1 MG/ML SYRINGE IV PRN (10:15)
--- NOTE | 2025-06-24 10:33 | Fluoroscopy Report ---
FL lumbar spine 2-3V CLINICAL HISTORY: L5-S1 DECOMPRESSION/FUSION COMPARISON STUDY: No previous studies for comparison. Fluoroscopy time: 21 seconds. Number of fluoroscopic images: 2. Ka,r: 18.985 mGy. FINDINGS: Fluoroscopy was provided during L5-S1 discectomy with interbody spacer placement, posterior decompression and bilateral pedicle screw fusion. Hardware is intact. No unexpected radiopaque forei gn bodies. IMPRESSION: Fluoroscopy provided during L5-S1 decompression and fusion. ACT 112: Negative or not required by law. Electronically signed by: Maciel Butler M.D. 06/24/2025 10:32 AM
[2025-06-24] MEDS ORDERED: MAGNESIUM HYDROXIDE SUSP 30 ML UDC PO PRN (11:03)
[2025-06-24] MEDS ORDERED: NALOXONE HCL 0.4 MG/1 ML VIAL/CARP IV PRN (11:03)
[2025-06-24] MEDS ORDERED: METOCLOPRAMIDE HCL INJ 5 MG/ML 2 ML VIAL IV PRN (11:03)
[2025-06-24] MEDS ORDERED: ALUMINUM/MAGNESIUM SUSP 30 ML UDC PO PRN (11:03)
[2025-06-24] MEDS ORDERED: DO NOT ADMINISTER FLU VACCINE PRN (11:03)
[2025-06-24] MEDS ORDERED: SOD PHOSPHATE/SOD BIPHOSPHATE ENEMA 132 ML BTL PR PRN (11:03)
[2025-06-24] MEDS ORDERED: KETOROLAC TROMETHAMINE 15 MG/ML VIAL IV PRN (11:03)
[2025-06-24] MEDS ORDERED: LORazepam Inj 0.5 MG in SYRINGE 0.25 ML IV PRN (11:03)
[2025-06-24] MEDS ORDERED: FAMOTIDINE 20 MG TAB PO PRN (11:03)
[2025-06-24] MEDS ORDERED: DO NOT ADMINISTER PNEUMOCOCCAL VACCINE PRN (11:03)
[2025-06-24] MEDS ORDERED: PROMETHAZINE 12.5 MG/50.5 ML BAG IV PRN (11:03)
[2025-06-24] MEDS ORDERED: ONDANSETRON 4 MG OD TAB PO PRN (11:03)
[2025-06-24] MEDS ORDERED: HYDROmorphone INJ 0.5 MG/0.5 ML SYR IV PRN (11:03)
[2025-06-24] MEDS ORDERED: ACETAMINOPHEN 1,000 MG/100 ML VIAL IV PRN (11:03)
[2025-06-24] MEDS ORDERED: diphenhydrAMINE Capsule 25 MG CAP PO PRN (11:03)
[2025-06-24] MEDS ORDERED: HYDROmorphone INJ 1 MG/ML SYRINGE IV PRN (11:03)
--- NOTE | 2025-06-24 11:42 | Consultation ---
Date of Consultation June 24, 2025 Assessment & Plan (1) Lumbosacral spondylosis with radiculopathy: Plan This is a 64-year-old female who has significant past medical history of hypothyroidism, GERD and anxiety who presents for elective lumbar procedure by Dr. Corey. #S/P L5-S1 decompression and fusion EBL 50ml pain/wound management per ortho activity and therapy per ortho monitor hgb, pre op 12.7 #Hypothyroidism: continue Synthroid #Gerd: continue PPI #Anxiety: lorazepam at HS #DVT ppx: SCds per ortho Dispo: per primary PCP: Livia Brenner FULL CODE Pt was seen and examined in collaboration with Dr. Bernard, please see addendum I spent a total of 45 minutes coordinating, documenting and providing care for this patient excluding time spent in the performance of separately billed services or time spent by another provider/QHP. Supervising Physician Co-Signing Physician Notes Attending Addendum: Case reviewed with the advanced practitioner. I have personally performed a history and physical examination on the patient. I have reviewed the advanced practitioner's documentation on the date of service referenced in note, and I agree with, and take responsibility for the plan of care. please refer to her notes for full details patient seen and examined, records reviewed by myself as well on exam, patient seen sitting up in bed, comfortable, in good spirits, very pleasant States she feels fine after surgery overall Minimal postop pain Already ambulated in the hallways, with no shortness of breath, chest pain, dizziness as per patient, chronic shooting pain on the left lower extremity seems to be resolved after surgery no other symptoms VS noted and reviewed oriented x3 , not in distress, speaks in sentences with no effort nor accessory muscle use normal rate, regular rhythm, no murmurs clear breath sounds bilaterally non distended, soft, nontender back-dressing in place- no drainage or bleeding noted, GEOVANY drain in place with very minimal sanguinous output no bipedal edema, erythema, warmth no neuro deficits all labs, imaging noted and reviewed ASSESSMENT AND PLAN Status post lumbar decompression surgery Doing well postoperatively so far Repeat CBC tomorrow other diagnoses and plan of care as per advanced practitioner's notes I spent a total of 20 minutes coordinating, documenting, and providing care for this patient, excluding time spent in the performance of separately billed services or time spent by another provider/QHP. Dank Bernard MD History of Present Illness Requesting Physician: Dr. Corey Reason for Consultation: Post op medical management Attending Physician: Manolo Corey DO History of Present Illness This is a 64-year-old female who has significant past medical history of hypothyroidism, GERD and anxiety who presents for elective lumbar procedure by Dr. Corey. She underwent L5-S1 decompression fusion and tolerated the procedure well. Prior to the surgery she suffered from low back pain as well as radicular symptoms to the left lower leg and foot. She states this was affecting her gait. Her is at bedside who also helps elicit history. Patient reports her and her recently lost 30 pounds and 60 pounds respectively. They got a new puppy, Tj in which they try to walk regularly. Currently she is lying in bed and feels well. She has very minimal pain. She denies fever, chills, sweats, lightheadedness, dizziness, chest pain, shortness of breath, nausea, vomiting or abdominal pain. Prior to the surgery she did suffer from urinary incontinence that was positional as well as significant constipation. She is hoping with her back surgery this may help alleviate the symptoms. She follows with a PCP in [place]. Allergies Allergy/AdvReac Type Severity Reaction Status Date / Time metoclopramide Allergy Severe Shortness Verified 06/24/25 05:56 of breath latex Allergy Intermediate Rash Verified 06/24/25 05:56 tramadol Allergy Intermediate Hives, Verified 06/24/25 05:56 Shortness of breath Home Medications Medication Instructions Recorded Confirmed Type Calcium 200 mg PO QAM 06/01/25 06/24/25 History escitalopram oxalate 10 mg tablet 10 mg PO QAM 06/01/25 06/24/25 History (Lexapro) fexofenadine 180 mg tablet 180 mg PO QAM 06/01/25 06/24/25 History levothyroxine 50 mcg tablet 50 mcg PO QAM 06/01/25 06/24/25 History (Synthroid) lorazepam 0.5 mg tablet (Ativan) 0.5 mg PO HS 06/01/25 06/24/25 History magnesium 200 mg tablet 200 mg PO HS 06/01/25 06/24/25 History meloxicam 15 mg tablet 15 mg PO QAM 06/01/25 06/24/25 History omeprazole 20 mg capsule,delayed 20 mg PO QAM 06/01/25 06/24/25 History release Hair,Skin and Nails 1 tab PO DAILY 06/08/25 06/24/25 History cholecalciferol (vitamin D3) 125 125 mcg PO DAILY 06/08/25 06/24/25 History mcg (5,000 unit) tablet (Vitamin D3) acetaminophen 325 mg capsule 650 mg PO TID PRN Pain 06/24/25 06/24/25 History oxycodone 5 mg tablet 5 mg PO Q6H PRN pain #30 tabs 06/24/25 Rx Patient History Medical History Acid reflux Chronic back pain Hypothyroidism Anxiety Surgical History History of bilateral tubal ligation x2 (first one "didn't work" per patient) History of endometrial ablation History of dilatation and curettage History of bilateral carpal tunnel release History of total left hip replacement History of total right hip replacement History of total hysterectomy with bilateral salpingo-oophorectomy (BSO) History of hernia surgery Age 3 History of cholecystectomy History of tooth extraction History of wisdom tooth extraction History of tonsillectomy and adenoidectomy Hx of LASIK Family History Other No family history of adverse response to anesthesia Social History Smoking Status: Never smoker Second Hand Exposure: No; Do You Dip or Chew Tobacco: No; Tobacco Cessation Education Requested by Patient: No Hx Alcohol Use: No Hx Substance Use: No Preferred Language: Peruvian Communication Ability: Effective Intramural Director Required: No Beliefs That Will Affect Care: None Current Living Situation: Spouse Other Information That Helps Us Care for You: No Feels Safe at Home: Yes Safety Concerns: Feels Safe At This Time Assistive Devices: None Review of Systems Review of Systems: All systems reviewed & are unremarkable except as noted in HPI & below Physical Exam Physical Exam: Constitutional: WD/WN, vitals as above, NAD, sitting up in bed, pleasant, conversing easily Head: Normocephalic, Atraumatic Eyes: conjunctivae normal, anicteric sclerae ENMT: external ear and nose normal, oropharynx normal Neck: trachea midline, no thyromegaly normal visual inspection Respiratory: CTAB, no W/R/R, normal inspection, no accessory muscle use Cardiovascular: RRR, no murmur, no edema Chest: normal inspection of chest Abdomen: S, NT, ND, +BS x 4 Musculoskeletal: no cyanosis or clubbing, extremities AROM x 4 , lumbar dressing CDI with serosanguineous drainage Skin: no rashes, warm and dry normal turgor Neurologic: PERRL, EOMI, accommodation nl, no face palsy, no dysarthria CN's II-XI intact bilaterally and moves all extremities Psychiatric: A+Ox3, euthymic affect Results & Data Vital Signs (Past 12 Hours) Vital Signs Temp Pulse Pulse Resp BP Pulse Ox O2 Del Method 06/24/25 11:34 77 16 114/71 97 Room Air 06/24/25 10:55 36.4 C L 73 16 119/70 96 Room Air 06/24/25 10:40 69 14 112/62 93 Room Air 06/24/25 10:25 70 15 128/68 93 Room Air 06/24/25 10:15 36.3 C L 78 16 127/76 99 Room Air 06/24/25 10:05 70 12 130/73 98 Room Air 06/24/25 09:55 73 16 126/70 99 Room Air 06/24/25 09:45 72 18 123/65 100 Room Air 06/24/25 09:36 35.8 C L 71 20 122/88 100 Oxymask 06/24/25 06:09 Room Air 06/24/25 06:08 36.5 C 74 18 130/76 97 Room Air O2 Flow Rate 06/24/25 11:34 06/24/25 10:55 06/24/25 10:40 06/24/25 10:25 06/24/25 10:15 06/24/25 10:05 06/24/25 09:55 06/24/25 09:45 06/24/25 09:36 6 06/24/25 06:09 06/24/25 06:08 Laboratory Results I have independently reviewed and interpreted patient's admitting labs including CBC, BMP, urine Diagnostic Findings Lumbar Spine X-Ray 06/24/25 07:45 FL lumbar spine 2-3V CLINICAL HISTORY: L5-S1 DECOMPRESSION/FUSION COMPARISON STUDY: No previous studies for comparison. Fluoroscopy time: 21 seconds. Number of fluoroscopic images: 2. Ka,r: 18.985 mGy. FINDINGS: Fluoroscopy was provided during L5-S1 discectomy with interbody spacer placement, posterior decompression and bilateral pedicle screw fusion. Hardware is intact. No unexpected radiopaque foreign bodies. IMPRESSION: Fluoroscopy provided during L5-S1 decompression and fusion. ACT 112: Negative or not required by law. Electronically signed by: Maciel Butler M.D. 06/24/2025 10:32 AM Medications Administered Current Inpatient Medications Acetaminophen (Acetaminophen 500 Mg Tab) 1,000 mg PO PREOP EMMA Stop: 06/24/25 18:00 Last Admin: 06/24/25 06:40 Dose: 1,000 mg Acetaminophen (Acetaminophen 500 Mg Tab) 1,000 mg PO Q8H PRN PRN Reason: MILD Pain (1,2,3) & Pre PT Stop: 07/24/25 11:02 Al Hydrox/Mg Hydrox/Simethicone (Aluminum/Magnesium Susp 30 Ml Udc) 30 ml PO Q6H PRN PRN Reason: Dyspepsia Stop: 07/24/25 11:02 Atropine Sulfate (Atropine Sulfate 0.1 Mg/Ml 10ml Syr) 0.5 mg IV Q1M PRN PRN Reason: PACU Use-HR<40 &/or Bradycardi Stop: 06/24/25 15:43 Bisacodyl (Bisacodyl 10 Mg Supp) 10 mg [place] DAILY PRN PRN Reason: Constipation Stop: 07/24/25 11:02 Celecoxib (Celebrex 200 Mg Cap) 200 mg PO PREOP EMMA Stop: 06/24/25 18:00 Last Admin: 06/24/25 06:41 Dose: 200 mg Diphenhydramine HCl (Diphenhydramine Capsule 25 Mg Cap) 25 mg PO Q6H PRN PRN Reason: Allergic Rhinitis/Insomnia Stop: 07/24/25 11:02 Ephedrine Sulfate (Ephedrine Sulfate 50 Mg/Ml Amp) 5 mg IV Q5M PRN PRN Reason: PACU Use Only-SBP<90 mmHg Stop: 06/24/25 15:43 Escitalopram Oxalate (Escitalopram Oxalate 10 Mg Tab) 10 mg PO QAM [facility]MA Stop: 07/25/25 08:59 Famotidine (Famotidine 20 Mg Tab) 20 mg PO Q12H PRN PRN Reason: Dyspepsia Stop: 07/24/25 11:02 Fexofenadine HCl (Fexofenadine Hcl 180 Mg Tab) 180 mg PO QAM [facility] Stop: 07/25/25 08:59 Gabapentin (Gabapentin 300 Mg Cap) 300 mg PO PREOP [facility]MA Stop: 06/24/25 18:00 Last Admin: 06/24/25 06:41 Dose: 300 mg Hydromorphone HCl (Hydromorphone Inj 1 Mg/Ml Syringe) 0.25 mg IV Q5M PRN PRN Reason: PACU Use Only-Pain Stop: 06/24/25 15:44 Last Admin: 06/24/25 10:20 Dose: 0.25 mg Hydromorphone HCl (Hydromorphone Inj 0.5 Mg/0.5 Ml Syr) 0.5 mg IV Q3H PRN PRN Reason: MODERATE Pain(4,5,6)/Pre PT Stop: 07/08/25 11:02 Hydromorphone HCl (Hydromorphone Inj 1 Mg/Ml Syringe) 1 mg IV Q3H PRN PRN Reason: SEVERE Pain (7,8,9,10) Stop: 07/08/25 11:02 Hydroxyzine HCl (Hydroxyzine Hcl 25 Mg Tab) 25 mg PO Q8H PRN PRN Reason: Anxiety Stop: 07/24/25 11:02 Lactated Ringer's (Lr) 1,000 mls @ 15 mls/hr IV .Q24H [facility]MA Stop: 06/25/25 05:59 Last Infusion: 06/24/25 07:51 Dose: Infused Lactated Ringer's (Lr) 1,000 mls @ 60 mls/hr IV .[id number] [facility]MA Stop: 06/24/25 22:39 Last Admin: 06/24/25 06:36 Dose: Not Given Cefazolin Sodium (Ancef 2000mg) 2,000 mg in 15 mls @ 3.75 mls/min IV PREOP EMMA; Protocol Stop: 06/24/25 18:00 Last Admin: 06/24/25 07:52 Dose: 3.75 mls/min Lactated Ringer's (Lr) 1,000 mls @ 75 mls/hr IV .[id number] [facility] Stop: 06/25/25 08:00 Acetaminophen (Ofirmev) 1,000 mg in 100 mls @ 400 mls/hr IV Q8H PRN PRN Reason: MILD Pain (1,2,3) & Pre PT Stop: 06/25/25 11:03 Cefazolin Sodium (Ancef 1000mg) 1,000 mg in 7.5 mls @ 2.5 mls/min IV Q8H [facility] Stop: 06/27/25 08:02 Promethazine HCl (Phenergan) 12.5 mg in 50.5 mls @ 202 mls/hr IV Q6H PRN PRN Reason: Nausea And Vomiting Stop: 07/24/25 11:02 Lorazepam 0.5 mg/ Syringe 0.5 mls @ 2 mls/min IV Q8H PRN PRN Reason: Sedation/Anxiety Stop: 07/24/25 11:02 Dexamethasone 6 mg/ Syringe 1.5 mls @ 1 mls/min IV DAILY [facility] Stop: 06/27/25 09:02 Influenza Virus Vaccine Quadrival (Do Not Administer Flu Vaccine) 1 each N/A PRN PRN PRN Reason: Notification Stop: 07/24/25 11:02 Ketorolac Tromethamine (Ketorolac Tromethamine 15 Mg/Ml Vial) 15 mg IV Q6H PRN PRN Reason: Pain Levothyroxine Sodium (Levothyroxine Sodium 50 Mcg Tablet) [facility] Stop: 07/25/25 06:29 Lorazepam (Lorazepam 0.5 Mg Tab) 0.5 mg PO Q8H PRN PRN Reason: Sedation/Anxiety Stop: 07/24/25 11:02 Magnesium Hydroxide (Magnesium Hydroxide Susp 30 Ml Udc) 30 ml PO Q24H PRN PRN Reason: Constipation Stop: 07/24/25 11:02 Magnesium Oxide (Magnesium Oxide 400 Mg Tab) [address] [facility] Stop: 07/24/25 20:59 Metoclopramide HCl (Metoclopramide Hcl Inj 5 Mg/Ml 2 Ml Vial) 10 mg IV Q6H PRN PRN Reason: Nausea &/or Vomiting Stop: 07/24/25 11:02 Naloxone HCl (Naloxone Hcl 0.4 Mg/1 Ml Vial/Carp) 0.1 mg IV Q5M PRN PRN Reason: Oversedation/Resp depression Stop: 07/24/25 11:02 Ondansetron HCl (Ondansetron Inj 2 Mg/Ml 2 Ml Vial) 4 mg IV ONCE PRN PRN Reason: PACU Use Only-Nausea/Vomiting Stop: 06/24/25 15:43 Ondansetron HCl (Ondansetron Inj 2 Mg/Ml 2 Ml Vial) 4 mg IV Q6H PRN PRN Reason: Nausea &/or Vomiting Stop: 07/24/25 11:02 Ondansetron HCl (Ondansetron 4 Mg Od Tab) 4 mg PO Q6H PRN PRN Reason: Nausea Stop: 07/24/25 11:02 Oxycodone HCl (Oxycodone Hcl Ir 5 Mg Tab (Immediate Release)) 5 - 10 mg PO Q4H PRN PRN Reason: MOD/SEV Pain & Pre PT Stop: 07/08/25 11:02 Pantoprazole Sodium (Pantoprazole 40 Mg Tab) 40 mg PO QAM [facility]MA Stop: 07/25/25 08:59 Pneumococcal Polyvalent Vaccine (Do Not Administer Pneumococcal Vaccine) 1 each N/A PRN PRN PRN Reason: Notification Stop: 07/24/25 11:02 Polyethylene Glycol (Polyethylene (Miralax) 17 Gm Pack) 17 gm PO Q6 [facility] Stop: 07/25/25 05:59 Senna/Docusate Sodium (Docusate Sodium/Senna 50/8.6mg Tab) 2 tab PO HS EMMA Stop: 07/24/25 20:59 Sodium Biphosphate/Sodium Phosphate (Sod Phosphate/Sod Biphosphate Enema 132 Ml Btl) 132 ml NH ONE PRN PRN Reason: Constipation Stop: 07/24/25 11:02 Vitamin D (Cholecalciferol 125 Mcg (5,000 Units) Tab) 125 mcg PO DAILY [facility] Stop: 07/25/25 08:59 ECG Additional Comments: I have independently reviewed and interpreted patient's admitting EKG which revealed: NSR 60bpm
[2025-06-24] MEDS: LACTATED RINGER'S 1,000 ML IV SCH (12:29)
--- NOTE | 2025-06-24 15:09 | Anesthesiology Progress Note ---
Date of Service June 24, 2025 Anesthesia Post Procedure Vital Signs Vital Signs: Temp Pulse Pulse Resp BP Pulse Ox O2 Del Method 06/24/25 13:52 36.6 C 75 16 108/66 96 Room Air 06/24/25 13:12 78 16 102/62 97 Room Air 06/24/25 11:56 85 16 108/67 98 Room Air 06/24/25 11:34 77 16 114/71 97 Room Air 06/24/25 10:55 36.4 C L 73 16 119/70 96 Room Air 06/24/25 10:40 69 14 112/62 93 Room Air 06/24/25 10:25 70 15 128/68 93 Room Air 06/24/25 10:15 36.3 C L 78 16 127/76 99 Room Air 06/24/25 10:05 70 12 130/73 98 Room Air 06/24/25 09:55 73 16 126/70 99 Room Air 06/24/25 09:45 72 18 123/65 100 Room Air 06/24/25 09:36 35.8 C L 71 20 122/88 100 Oxymask 06/24/25 06:09 Room Air 06/24/25 06:08 36.5 C 74 18 130/76 97 Room Air O2 Flow Rate 06/24/25 13:52 06/24/25 13:12 06/24/25 11:56 06/24/25 11:34 06/24/25 10:55 06/24/25 10:40 06/24/25 10:25 06/24/25 10:15 06/24/25 10:05 06/24/25 09:55 06/24/25 09:45 06/24/25 09:36 6 06/24/25 06:09 06/24/25 06:08 Pain Intensity Back: Pain Intensity: 4 Transfer of Care Handoff Completed per policy Notes Mental Status: alert / awake / arousable Patient Amnestic to Procedure: Yes Nausea / Vomiting: adequately controlled Pain: adequately controlled Airway Patency, RR, SpO2: stable & adequate BP & HR: stable & adequate Hydration State: stable & adequate Anesthetic Complications: no major complications apparent
[2025-06-24] MEDS: ACETAMINOPHEN 500 MG TAB PO PRN (17:24)
[2025-06-24] MEDS: DOCUSATE SODIUM/SENNA 50/8.6MG TAB PO SCH (20:23)
[2025-06-24] MEDS: MAGNESIUM OXIDE 400 MG TAB PO SCH (20:23)
[2025-06-24] MEDS: LORazepam 0.5 MG TAB PO PRN (23:09)
[2025-06-25] MEDS: LEVOTHYROXINE SODIUM 50 MCG TABLET PO SCH (06:27)
[2025-06-25] MEDS: POLYETHYLENE (MIRALAX) 17 GM PACK PO SCH (06:27)
[2025-06-25 06:41] LABS: Hematocrit (blood only) 31.7 % (37.0-47.0); Hemoglobin 10.7 g/dL (12.0-16.0); Immature Granulocytes # (auto) 0.04 K/uL (0.01-0.20); Immature Granulocytes % (auto) 0.4 %; Mean Corpuscular Hemoglobin 32.2 pg (25.0-34.0); Mean Corpuscular Volume 95.5 fL (80.0-100.0); Platelet Count 198 K/uL (130-400); RDW Standard Deviation 41.7 fL (36.4-46.3); Red Blood Count 3.32 M/uL (4.20-5.40); White Blood Count 9.78 K/ul (4.8-10.8)
[2025-06-25 07:08] LABS: Anion Gap 5.0 (3-11); Blood Urea Nitrogen 16.0 mg/dl (6-23); Calcium 8.6 mg/dl (8.6-10.3); Carbon Dioxide 30.0 mmol/L (21-32); Chloride 104.0 mmol/L (98-107); Creatinine Clr Calc Pharmacy 63.8 ml/min; Glucose 89.0 mg/dl (70-99(Fasting)); Potassium 4.1 mmol/L (3.5-5.1); Sodium 139.0 mmol/L (136-145)
--- NOTE | 2025-06-25 07:20 | Hospitalist Progress Note ---
Date of Service June 25, 2025 Assessment & Plan (1) Lumbosacral spondylosis with radiculopathy: (2) S/P lumbar fusion: (3) Hypothyroidism: (4) Acid reflux: (5) Anxiety: Plan 64-year-old female who has significant past medical history of hypothyroidism, GERD, anxiety, and lumbosacral spondylosis with radiculopathy who underwent L5- S1 decompression and fusion on 06/24/[address] Corey. We have been consulted for post operative medical management. Lumbosacral spondylosis with radiculopathy s/p lumbar fusion POD#2 L5-S1 decompression and fusion on 06/24/[address] Corey Activity level, pain control, antibiotics, DVT prophylaxis, bowel regimen, wound/drain care per primary team Encourage incentive spirometer PT recommending return home DC tomorrow per Dr. Corey Acute blood loss anemia Preop Hgb 12.7-> 10.7 today EBL 50cc and GEOVANY drain output 475cc so far Patient asymptomatic Monitor CBC Hypothyroidism Continue levothyroxine GERD Continue PPI Anxiety Continue lorazepam HS DVT Prophylaxis: TEDs/SCDs per primary team Code Status: FULL CODE PCP: Livia Brenner Disposition: DC to home tomorrow per primary team Patient seen in collaboration with Dr. Johnson. Please see addendum. I spent a total of 60 minutes coordinating, documenting and providing care for this patient excluding time spent in the performance of separately billed services or time spent by another provider/QHP. Admission and Anticipated Discharge Date Admission Date: June 24, 2025 Supervising Physician Co-Signing Physician Notes Patient is seen and examined follow-up for medical consult status post lumbar sacral decompression and fusion. Patient reports BLE radicular signs and symptoms improvement, reports operative site pain under control. Patient is tolerating diet, moving gas. Denies abdominal pain. Continue with pain management. On exam, low back dressing without soakage, GEOVANY drain with minimal serosanguineous collection noted. Rest of the examination as above. Total time spent independently: 15 minutes. I have seen and examined the patient and have discussed the case with the provider above. I agree with the assessment and plan as stated. Subjective Patient seen resting in bed Reports pain is manageable with medication Has been up walking several times Still notes numbness in left leg and foot, right foot Denies dizziness, chest pain, SOB, abdominal pain, N/V/D Feels like she needs to pass gas, no BM yet Review of Systems Review of Systems: All systems reviewed & are unremarkable except as noted in HPI & below Physical Exam Physical Exam: General/Psych: WD/WN, sitting up in bed, NAD, conversing easily Head: normocephalic, atraumatic Eyes: normal inspection, PERRL, conjunctivae pink Neck: normal visual inspection, trachea midline Respiratory: normal respiratory effort, lungs clear to auscultation, no wheeze/rales/rhonchi, no accessory muscle use Cardiovascular: regular rate and rhythm, no murmur/rub/gallop Extremities: no cyanosis or clubbing, normal peripheral pulses, no BLE edema, sensation intact BLE Abdomen/GI: normal bowel sounds, soft, nontender Neurologic/MSK: A+Ox3, motor strength 5/5, moves all extremities Skin: no rashes, normal color, warm and dry, island dressing c/d/i, GEOVANY drain with sanguineous output Results & Data Results & Data Vital Signs (Past 12 Hours) Vital Signs Temp Pulse Resp BP Pulse Ox O2 Del Method 06/25/25 03:15 37.0 C 75 18 96/62 L 97 Room Air 06/24/25 23:11 37.0 C 78 16 116/68 97 Room Air Laboratory Results Short CBC 06/25/25 Range/Units 05:58 WBC 9.78 (4.8-10.8) K/ul Hgb 10.7 L (12.0-16.0) g/dL Hct 31.7 L (37.0-47.0) % Plt Count 198 (130-400) K/uL BMP 06/25/25 05:58 Sodium 139 Potassium 4.1 Chloride 104 Carbon Dioxide 30 BUN 16 Creatinine 0.79 Glucose 89 Calcium 8.6 I have independently reviewed and interpreted patient's labs including CBC and BMP. Medications Administered Current Inpatient Medications Acetaminophen (Acetaminophen 500 Mg Tab) 1,000 mg PO Q8H PRN PRN Reason: MILD Pain (1,2,3) & Pre PT Stop: 07/24/25 11:02 Last Admin: 06/24/25 17:24 Dose: 1,000 mg Al Hydrox/Mg Hydrox/Simethicone (Aluminum/Magnesium Susp 30 Ml Udc) 30 ml PO Q6H PRN PRN Reason: Dyspepsia Stop: 07/24/25 11:02 Bisacodyl (Bisacodyl 10 Mg Supp) 10 mg [place] DAILY PRN PRN Reason: Constipation Stop: 07/24/25 11:02 Diphenhydramine HCl (Diphenhydramine Capsule 25 Mg Cap) 25 mg PO Q6H PRN PRN Reason: Allergic Rhinitis/Insomnia Stop: 07/24/25 11:02 Escitalopram Oxalate (Escitalopram Oxalate 10 Mg Tab) 10 [place] Stop: 07/25/25 08:59 Last Admin: 06/25/25 08:36 Dose: 10 mg Famotidine (Famotidine 20 Mg Tab) 20 mg PO Q12H PRN PRN Reason: Dyspepsia Stop: 07/24/25 11:02 Fexofenadine HCl (Fexofenadine Hcl 180 Mg Tab) 180 mg PO [facility] Stop: 07/25/25 08:59 Last Admin: 06/25/25 08:36 Dose: 180 mg Hydromorphone HCl (Hydromorphone Inj 0.5 Mg/0.5 Ml Syr) 0.5 mg IV Q3H PRN PRN Reason: MODERATE Pain(4,5,6)/Pre PT Stop: 07/08/25 11:02 Hydromorphone HCl (Hydromorphone Inj 1 Mg/Ml Syringe) 1 mg IV Q3H PRN PRN Reason: SEVERE Pain (7,8,9,10) Stop: 07/08/25 11:02 Hydroxyzine HCl (Hydroxyzine Hcl 25 Mg Tab) 25 mg PO Q8H PRN PRN Reason: Anxiety Stop: 07/24/25 11:02 Cefazolin Sodium (Ancef 1000mg) 1,000 mg in 7.5 mls @ 2.5 mls/min IV Q8H [facility] Stop: 06/27/25 08:02 Last Admin: 06/25/25 08:24 Dose: 2.5 mls/min Promethazine HCl (Phenergan) 12.5 mg in 50.5 mls @ 202 mls/hr IV Q6H PRN PRN Reason: Nausea And Vomiting Stop: 07/24/25 11:02 Lorazepam 0.5 mg/ Syringe 0.5 mls @ 2 mls/min IV Q8H PRN PRN Reason: Sedation/Anxiety Stop: 07/24/25 11:02 Dexamethasone 6 mg/ Syringe 1.5 mls @ 1 mls/min IV DAILY [facility] Stop: 06/27/25 09:02 Last Admin: 06/25/25 08:31 Dose: 1 mls/min Influenza Virus Vaccine Quadrival (Do Not Administer Flu Vaccine) 1 each N/A AL N PRN PRN Reason: Notification Stop: 07/24/25 11:02 Ketorolac Tromethamine (Ketorolac Tromethamine 15 Mg/Ml Vial) 15 mg IV Q6H PRN PRN Reason: Pain Levothyroxine Sodium (Levothyroxine Sodium 50 Mcg Tablet) [facility] Stop: 07/25/25 06:29 Last Admin: 06/25/25 06:27 Dose: 50 mcg Lorazepam (Lorazepam 0.5 Mg Tab) 0.5 mg PO Q8H PRN PRN Reason: Sedation/Anxiety Stop: 07/24/25 11:02 Last Admin: 06/24/25 23:09 Dose: 0.5 mg Magnesium Hydroxide (Magnesium Hydroxide Susp 30 Ml Udc) 30 ml PO Q24H PRN PRN Reason: Constipation Stop: 07/24/25 11:02 Magnesium Oxide (Magnesium Oxide 400 Mg Tab) 400 mg PO [facility] Stop: 07/24/25 20:59 Last Admin: 06/24/25 20:23 Dose: 400 mg Metoclopramide HCl (Metoclopramide Hcl Inj 5 Mg/Ml 2 Ml Vial) 10 mg IV Q6H PRN PRN Reason: Nausea &/or Vomiting Stop: 07/24/25 11:02 Naloxone HCl (Naloxone Hcl 0.4 Mg/1 Ml Vial/Carp) 0.1 mg IV Q5M PRN PRN Reason: Oversedation/Resp depression Stop: 07/24/25 11:02 Ondansetron HCl (Ondansetron Inj 2 Mg/Ml 2 Ml Vial) 4 mg IV Q6H PRN PRN Reason: Nausea &/or Vomiting Stop: 07/24/25 11:02 Ondansetron HCl (Ondansetron 4 Mg Od Tab) 4 mg PO Q6H PRN PRN Reason: Nausea Stop: 07/24/25 11:02 Oxycodone HCl (Oxycodone Hcl Ir 5 Mg Tab (Immediate Release)) 5 - 10 mg PO Q4H PRN PRN Reason: MOD/SEV Pain & Pre PT Stop: 07/08/25 11:02 Last Admin: 06/25/25 01:30 Dose: 10 mg Pantoprazole Sodium (Pantoprazole 40 Mg Tab) 40 mg PO QAM [facility] Stop: 07/25/25 08:59 Last Admin: 06/25/25 08:36 Dose: Not Given Pneumococcal Polyvalent Vaccine (Do Not Administer Pneumococcal Vaccine) 1 each N/A PRN PRN PRN Reason: Notification Stop: 07/24/25 11:02 Polyethylene Glycol (Polyethylene (Miralax) 17 Gm Pack) 17 gm PO Q6 [facility] Stop: 07/25/25 05:59 Last Admin: 06/25/25 11:55 Dose: 17 gm Senna/Docusate Sodium (Docusate Sodium/Senna 50/8.6mg Tab) 2 tab PO HS [facility] Stop: 07/24/25 20:59 Last Admin: 06/24/25 20:23 Dose: 2 tab Sodium Biphosphate/Sodium Phosphate (Sod Phosphate/Sod Biphosphate Enema 132 Ml Btl) 132 ml AL ONE PRN PRN Reason: Constipation Stop: 07/24/25 11:02 Vitamin D (Cholecalciferol 125 Mcg (5,000 Units) Tab) 125 mcg PO DAILY [facility] Stop: 07/25/25 08:59 Last Admin: 06/25/25 08:36 Dose: 125 mcg
[2025-06-25 07:54] VITALS: RESP 16
[2025-06-25] MEDS: dexAMETHasone 6 MG in SYRINGE 0 ML IV SCH (08:31)
[2025-06-25] MEDS: CHOLECALCIFEROL 125 MCG (5,000 UNITS) TAB PO SCH (08:36)
[2025-06-25] MEDS: ESCITALOPRAM OXALATE 10 MG TAB PO SCH (08:36)
[2025-06-25] MEDS: FEXOFENADINE HCL 180 MG TAB PO SCH (08:36)
--- NOTE | 2025-06-25 10:56 | Orthopedic Progress Note ---
Date of Service June 25, 2025 Assessment & Plan (1) Lumbosacral spondylosis with radiculopathy: Plan: At this time continue physical therapy monitor GEOVANY operatively discharge home tomorrow. Admission and Anticipated Discharge Date Admission Date: June 24, 2025 Subjective Patient's back pain is controlled leg symptoms markedly improved Physical Exam Physical Exam: Patient is sitting up in bed. She is comfortable. Distracted testing. Results & Data Vital Signs (Past 12 Hours) Vital Signs Temp Pulse Pulse Resp BP Pulse Ox O2 Del Method 06/25/25 07:53 36.9 C 72 16 95/59 L 96 Room Air 06/25/25 03:15 37.0 C 75 18 96/62 L 97 Room Air 06/24/25 23:11 37.0 C 78 16 116/68 97 Room Air
[2025-06-25 21:43] VITALS: TEMP 97.9
[2025-06-26 07:47] VITALS: BP 94/59; PULSE 69; O2SAT 97
--- NOTE | 2025-06-26 10:04 | Discharge Summary ---
Date of Service June 26, 2025 Admission HPI Per Admitting Provider This is a 64-year-old female who presents with chronic persistent back and leg pain and failing course of nonoperative care is here for surgical invention. Principal Diagnosis Lumbar spondylosis with radiculopathy Discharge Data Allergies Allergy/AdvReac Type Severity Reaction Status Date / Time metoclopramide Allergy Severe Shortness Verified 06/24/25 05:56 of breath latex Allergy Intermediate Rash Verified 06/24/25 05:56 tramadol Allergy Intermediate Hives, Verified 06/24/25 05:56 Shortness of breath Consultations 06/24/25 11:03 Consult Hospitalist Routine Procedures Performed Operation Date: 06/24/25 07:45 Actual Procedures p L5-S1 Decompession and Fusion(Not Applicable) - Manolo Corey DO Ordered Studies 06/24/25 07:45 FL lumbar spine 2-3V Routine Hospital Course (1) Lumbosacral spondylosis with radiculopathy: Patient underwent lumbar decompression fusion tolerated so was taken to orthopedic for postoperative. Postoperatively she progressed appropriate. GEOVANY d rain decreasing. Pain well-controlled. Excellent strength testing. Patient was subsidy discharged home. Discharge orders and instructions from the chart for further review. Total Time Total Time Spent Total Time Spent (In Minutes): 20 minutes Discharge Plan Discharge Items Patient Disposition: Home - Self-Care Reason For Visit: postop Discharge Diagnosis: Lumbar spondylosis with radiculopathy Activity: As commented below Non-emergency contact: Primary Care Provider Call non-emergency contact if: you have any medication questions Follow-up/Referrals: Lviia Brenner D.O. [Primary Care Provider] - Diet: Regular Addtl Attending Provider Instructions: ACTIVITY RECOMMENDATIONS: SELF CARE INSTRUCTIONS AFTER THORACIC/LUMBAR FUSIONS 1. You may walk to your tolerance. It is good exercise for your legs and back. Expect some back and intermittent leg aches and pains. 2. You may perform "counter-top" level activities (make a sandwich, nuria with a project, etc.). 3. No bending or lifting of more than 10 pounds or back twisting of any nature (roll like a log when turning in bed). 4. You may ride in a car for 20-30 minutes at a time. No driving until after your first visit with your doctor. 5. Frequent changes of position and restricting sitting to 30 minutes at a time will help limit the amount of back spasms and stiffness you may experience. 6. You may discontinue the use of ambulatory aids (cane, crutches, etc.) once your strength and confidence allow. 7. You may thread spinner the shower and let water strike your incision when you arrive home at least once daily. Do not take a tub bath, sit in a hot tub or go into a swimming pool until after your first recheck in the office. 8. You may resume previous diet. SPECIAL CARE INSTRUCTIONS: VERY IMPORTANT TO READ AND REVIEW A. Your surgical incision has been closed with a cosmetic suture under the skin that will dissolve in about 6 weeks. In 14 days, you can use a pair of clean scissors and cut the suture that is left outside of the skin at the ends of your incision. 1. The small skin tapes can be removed 7 days after surgery if they have not fallen off by that point. 2. You may keep the wound open to air as much as possible to promote healing after post-op day number 5 unless told otherwise by your doctor. 3. If you think the wound looks like it is becoming infected (redness or worsening drainage) and/or you are experiencing fever, chill or worsening back pain and muscle spasms, contact the office so that we may evaluate you as soon as possible. B. Complications are uncommon, but please contact us if you have any signs or symptoms of: 1. wound infection (fever higher than 102.5 degrees F, redness, separation of wound, drainage, or increasing pain from the incision) 2. blood clots in legs (pain, swelling, redness and warmth in legs) 3. urinary tract infection (fever higher than 102.5 degrees F, burning upon urination or increased frequency of urination) 4. nerve problems (inability to walk on your toes or heels, numbness, loss of bowel or bladder control) 5. any other symptoms that concern you C. Please call the office at if you have any concerns or questions about your operation or recovery. D. No smoking! Smoking drastically decreases the chance of a solid fusion. E. Do not take any anti-inflammatory medications (Indocin, Advil, Motrin, Aspirin, Naprosyn, etc.) as these may inhibit the chance of a solid fusion. Tylenol is okay to take for pain. MANAGING PAIN AFTER SPINAL SURGERY 1. Narcotic medication is intended for short-term use and will be provided for surgical pain. Surgical pain usually lasts for a period of 4-6 weeks. Narcotic medication includes Percocet, Vicodin, Darvocet, Tylenol #3 or Lortab. 2. Longer-term pain is more appropriately treated with non-narcotic medication such as Tylenol ES. 3. Muscle spasm is not appropriately treated with narcotics. Muscle relaxers such as Soma, Flexeril or Skelaxin can be used along with Tylenol ES. 4. Remember that we all live with some "aches and pains". This is not unusual or uncommon after an injury or as we get older. a. Back pain is expected and may include muscle spasms for 4 to 6 weeks after surgery. The pain should gradually improve. If the pain worsens for no apparent reason, please contact the office. b. Intermittent leg pain may also be experienced and should not be concerned about unless it worsens for no apparent reason. If so, please contact the office. 5. We will provide appropriate medication within the normal guidelines of their prescribed use. We will also be very cautious and aware of potential abuse and extended duration of patients' medication needs. a. Pain medications are for your comfort and to assist with sleep and rest so that the tissue can heal. They are not provided in order to return to normal activity and should not be used through the day. To do so or worsening pain at night can result from ongoing tissue damage and development of tolerance to the prescribed medicine. 6. Please allow 2-3 days to process refills. Prescriptions will not be mailed but must be picked up at the office. FOLLOW UP VISIT: Keep your scheduled follow-up appointment. Any questions, please call the office at . Pending Studies at Discharge: No Stand-Alone Forms: [employer], Smoking Cessation Medications and MO Order Prescriptions: New oxycodone 5 mg tablet 5 mg PO Q6H PRN (Reason: pain) Qty: 30 0RF Continued meloxicam 15 mg Tablet 15 mg PO QAM fexofenadine [Ivanna] 180 mg Tablet 180 mg PO QAM lorazepam [Ativan] 0.5 mg Tablet 0.5 mg PO HS levothyroxine [Synthroid] 50 mcg Tablet 50 mcg PO QAM omeprazole [Prilosec] 20 mg Capsule,Delayed Release(Dr/Ec) 20 mg PO QAM magnesium 200 mg Tablet 200 mg PO HS escitalopram oxalate [Lexapro] 10 mg Tablet 10 mg PO QAM Calcium 200 mg PO QAM cholecalciferol (vitamin D3) [Vitamin D3] 125 mcg (5,000 unit) Tablet 125 mcg PO DAILY Hair,Skin and Nails 1 tab PO DAILY acetaminophen [Tylenol] 325 mg Capsule 650 mg PO TID PRN (Reason: Pain) Discharge Orders: Discharge Order (Routine); Ordered 06/26/25 Ordered By: Manolo Corey Admission Data Admit Date/Time: 06/24/25 09:32 Attending Provider: Manolo Corey Admit Provider: Manolo Corey Primary Care Provider: Livia Brenner Other Providers: [facility]; Kirstin Potter; Boo Johnson
--- NOTE | 2025-06-26 11:03 | Hospitalist Progress Note ---
Date of Service June 26, 2025 Assessment & Plan (1) Lumbosacral spondylosis with radiculopathy: (2) S/P lumbar fusion: (3) Hypothyroidism: (4) Acid reflux: (5) Anxiety: Plan 64-year-old female who has significant past medical history of hypothyroidism, GERD, anxiety, and lumbosacral spondylosis with radiculopathy who underwent L5- S1 decompression and fusion on 06/24/[address] Corey. We have been consulted for post operative medical management. Lumbosacral spondylosis with radiculopathy s/p lumbar fusion POD#3 L5-S1 decompression and fusion on 06/24/[address] Corey Pain is controlled PT recommending return home DC to home today Acute blood loss anemia Preop Hgb 12.7-> 10.7 Patient asymptomatic Hypothyroidism Continue levothyroxine GERD Continue PPI Anxiety Continue lorazepam HS DVT Prophylaxis: TEDs/SCDs per primary team Code Status: FULL CODE PCP: Livia Brenner Disposition: DC to home per primary team Thank you for this consultation. We will continue to follow this patient with you. [facility]02 via the role in [employer] - please don't hesitate to reach out with questions. Patient seen in collaboration with Dr. Johnson. Please see addendum. I spent a total of 45 minutes coordinating, documenting and providing care for this patient excluding time spent in the performance of separately billed services or time spent by another provider/QHP. Admission and Anticipated Discharge Date Admission Date: June 24, 2025 Supervising Physician Co-Signing Physician Notes Patient is seen and examined follow-up for medical consult status post lumbar sacral decompression and fusion. Patient reports BLE radicular signs and symptoms improvement, reports operative site pain under control. Patient is tolerating diet, moving gas. Denies abdominal pain. Continue with pain management. On exam, low back dressing without soakage, GEOVANY drain with minimal serosanguineous collection noted. Rest of the examination as above. Total time spent independently: 12 minutes. I have seen and examined the patient and have discussed the case with the provider above. I agree with the assessment and plan as stated. Subjective Patient seen sitting on edge of bed Reports pain is controlled Numbness in legs is improving Denies dizziness, chest pain, SOB, abdominal pain, N/V/D Had a bowel movement Ready for dc today Review of Systems Review of Systems: All systems reviewed & are unremarkable except as noted in HPI & below Physical Exam Physical Exam: General/Psych: WD/WN, sitting up in bed, NAD, conversing easily Head: normocephalic, atraumatic Eyes: normal inspection, PERRL, conjunctivae pink Neck: normal visual inspection, trachea midline Respiratory: normal respiratory effort, lungs clear to auscultation, no wheeze/rales/rhonchi, no accessory muscle use Cardiovascular: regular rate and rhythm, no murmur/rub/gallop Extremities: no cyanosis or clubbing, normal peripheral pulses, no BLE edema, sensation intact BLE Abdomen/GI: normal bowel sounds, soft, nontender Neurologic/MSK: A+Ox3, motor strength 5/5, moves all extremities Skin: no rashes, normal color, warm and dry, island dressing c/d/i, GEOVANY drain with sanguineous output Results & Data Results & Data Vital Signs (Past 12 Hours) Vital Signs Temp Pulse Resp BP Pulse Ox O2 Del Method 06/26/25 07:45 36.6 C 69 16 94/59 L 97 Room Air Medications Administered Current Inpatient Medications Acetaminophen (Acetaminophen 500 Mg Tab) 1,000 mg PO Q8H PRN PRN Reason: MILD Pain (1,2,3) & Pre PT Stop: 07/24/25 11:02 Last Admin: 06/26/25 07:50 Dose: 1,000 mg Al Hydrox/Mg Hydrox/Simethicone (Aluminum/Magnesium Susp 30 Ml Udc) 30 ml PO Q6H PRN PRN Reason: Dyspepsia Stop: 07/24/25 11:02 Bisacodyl (Bisacodyl 10 Mg Supp) 10 mg [place] DAILY PRN PRN Reason: Constipation Stop: 07/24/25 11:02 Diphenhydramine HCl (Diphenhydramine Capsule 25 Mg Cap) 25 mg PO Q6H PRN PRN Reason: Allergic Rhinitis/Insomnia Stop: 07/24/25 11:02 Escitalopram Oxalate (Escitalopram Oxalate 10 Mg Tab) 10 mg PO QAM [facility] Stop: 07/25/25 08:59 Last Admin: 06/26/25 07:52 Dose: 10 mg Famotidine (Famotidine 20 Mg Tab) 20 mg PO Q12H PRN PRN Reason: Dyspepsia Stop: 07/24/25 11:02 Fexofenadine HCl (Fexofenadine Hcl 180 Mg Tab) 180 mg PO QAM [facility] Stop: 07/25/25 08:59 Last Admin: 06/26/25 07:52 Dose: 180 mg Hydromorphone HCl (Hydromorphone Inj 0.5 Mg/0.5 Ml Syr) 0.5 mg IV Q3H PRN PRN Reason: MODERATE Pain(4,5,6)/Pre PT Stop: 07/08/25 11:02 Hydromorphone HCl (Hydromorphone Inj 1 Mg/Ml Syringe) 1 mg IV Q3H PRN PRN Reason: SEVERE Pain (7,8,9,10) Stop: 07/08/25 11:02 Hydroxyzine HCl (Hydroxyzine Hcl 25 Mg Tab) 25 mg PO Q8H PRN PRN Reason: Anxiety Stop: 07/24/25 11:02 Cefazolin Sodium (Ancef 1000mg) 1,000 mg in 7.5 mls @ 2.5 mls/min IV Q8H [facility] Stop: 06/27/25 08:02 Last Admin: 06/26/25 08:29 Dose: 2.5 mls/min Promethazine HCl (Phenergan) 12.5 mg in 50.5 mls @ 202 mls/hr IV Q6H PRN PRN Reason: Nausea And Vomiting Stop: 07/24/25 11:02 Lorazepam 0.5 mg/ Syringe 0.5 mls @ 2 mls/min IV Q8H PRN PRN Reason: Sedation/Anxiety Stop: 07/24/25 11:02 Dexamethasone 6 mg/ Syringe 1.5 mls @ 1 mls/min IV DAILY [facility] Stop: 06/27/25 09:02 Last Admin: 06/26/25 07:52 Dose: 1 mls/min Influenza Virus Vaccine Quadrival (Do Not Administer Flu Vaccine) 1 each N/A PRN PRN PRN Reason: Notification Stop: 07/24/25 11:02 Ketorolac Tromethamine (Ketorolac Tromethamine 15 Mg/Ml Vial) 15 mg IV Q6H PRN PRN Reason: Pain Levothyroxine Sodium (Levothyroxine Sodium 50 Mcg Tablet) 50 mcg PO DAILYBB [facility] Stop: 07/25/25 06:29 Last Admin: 06/26/25 05:39 Dose: 50 mcg Lorazepam (Lorazepam 0.5 Mg Tab) 0.5 mg PO Q8H PRN PRN Reason: Sedation/Anxiety Stop: 07/24/25 11:02 Last Admin: 06/25/25 21:40 Dose: 0.5 mg Magnesium Hydroxide (Magnesium Hydroxide Susp 30 Ml Udc) 30 ml PO Q24H PRN PRN Reason: Constipation Stop: 07/24/25 11:02 Magnesium Oxide (Magnesium Oxide 400 Mg Tab) 400 mg PO HS [facility] Stop: 07/24/25 20:59 Last Admin: 06/25/25 21:42 Dose: 400 mg Metoclopramide HCl (Metoclopramide Hcl Inj 5 Mg/Ml 2 Ml Vial) 10 mg IV Q6H PRN PRN Reason: Nausea &/or Vomiting Stop: 07/24/25 11:02 Naloxone HCl (Naloxone Hcl 0.4 Mg/1 Ml Vial/Carp) 0.1 mg IV Q5M PRN PRN Reason: Oversedation/Resp depression Stop: 07/24/25 11:02 Ondansetron HCl (Ondansetron Inj 2 Mg/Ml 2 Ml Vial) 4 mg IV Q6H PRN PRN Reason: Nausea &/or Vomiting Stop: 07/24/25 11:02 Ondansetron HCl (Ondansetron 4 Mg Od Tab) 4 mg PO Q6H PRN PRN Reason: Nausea Stop: 07/24/25 11:02 Oxycodone HCl (Oxycodone Hcl Ir 5 Mg Tab (Immediate Release)) 5 - 10 mg PO Q4H PRN PRN Reason: MOD/SEV Pain & Pre PT Stop: 07/08/25 11:02 Last Admin: 06/25/25 21:40 Dose: 10 mg Pantoprazole Sodium (Pantoprazole 40 Mg Tab) 40 mg PO QAM [facility] Stop: 07/25/25 08:59 Last Admin: 06/26/25 07:51 Dose: 40 mg Pneumococcal Polyvalent Vaccine (Do Not Administer Pneumococcal Vaccine) 1 each N/A PRN PRN PRN Reason: Notification Stop: 07/24/25 11:02 Polyethylene Glycol (Polyethylene (Miralax) 17 Gm Pack) 17 gm PO Q6 [facility] Stop: 07/25/25 05:59 Last Admin: 06/26/25 05:39 Dose: 17 gm Senna/Docusate Sodium (Docusate Sodium/Senna 50/8.6mg Tab) 2 tab PO HS [facility] Stop: 07/24/25 20:59 Last Admin: 06/25/25 21:42 Dose: 2 tab Sodium Biphosphate/Sodium Phosphate (Sod Phosphate/Sod Biphosphate Enema 132 Ml Btl) 132 ml [place] ONE PRN PRN Reason: Constipation Stop: 07/24/25 11:02 Vitamin D (Cholecalciferol 125 Mcg (5,000 Units) Tab) 125 mcg PO DAILY [facility] Stop: 07/25/25 08:59 Last Admin: 06/26/25 07:52 Dose: 125 mcg
== END 2025-06-26 11:09 | disposition home health service (06) | DRG 402 ==
LOC: ASU 05:55 → 3E 09:32